=== PATIENT | female | born 1935 | race Caucasian/White ===

== ENCOUNTER 2017-11-15 11:02 | Emergency (ER) | payer MEDICARE, OTHER ==
[~2017-11-15] VITALS: Ht 165.1 cm; Wt 79.4 kg
[2017-11-15] MEDS ORDERED: cloNIDine HCL 0.1 MG TAB ONE (11:13)
[2017-11-15] MEDS ORDERED: cloNIDine HCL 0.1 MG TAB PO ONE (11:30)
[2017-11-15 12:00] VITALS: BP 172/84
[2017-11-15] MEDS ORDERED: TETANUS-DIPTH-ACEL PERTUSSIS 0.5ML SYRG IM ONE ×2 (12:18→12:30)
== END 2017-11-15 12:42 | disposition home or self-care (01) ==
LOC: ER 11:02
DX: S01.81XA Laceration without foreign body of other part of head, initial encounter (principal); M25.531 Pain in right wrist; I16.0 Hypertensive urgency; I10 Essential (primary) hypertension; J44.9 Chronic obstructive pulmonary disease, unspecified; J45.909 Unspecified asthma, uncomplicated; Z90.710 Acquired absence of both cervix and uterus; Z90.49 Acquired absence of other specified parts of digestive tract; W01.0XXA Fall on same level from slipping, tripping and stumbling without subsequent striking against object, initial encounter; Y93.89 Activity, other specified; Y99.8 Other external cause status; Y92.89 Other specified places as the place of occurrence of the external cause
CPT/HCPCS: 12011; 70450; 73110; 90471; 90715

== ENCOUNTER 2019-10-03 17:04 | Emergency (ER) | payer MEDICARE, OTHER ==
[~2019-10-03] VITALS: Ht 165.1 cm; Wt 79.4 kg
[2019-10-03 17:59] VITALS: BP 175/95
== END 2019-10-03 23:37 | disposition left against medical advice (07) ==
LOC: ER 17:04
DX: R51 Headache (principal); Z53.21 Procedure and treatment not carried out due to patient leaving prior to being seen by health care provider
CPT/HCPCS: 70450

== ENCOUNTER 2020-07-09 11:51 | Inpatient (IN) | payer MEDICARE, OTHER ==
[~2020-07-09] VITALS: Ht 165.1 cm; Wt 73.7 kg
[2020-07-09] MEDS ORDERED: SODIUM CHLORIDE 0.9% 1,000 ML IV ONE (12:15)
[2020-07-09] MEDS ORDERED: ACETAMINOPHEN 500 MG TAB PO ONE (12:46)
[2020-07-09 13:06] LABS: Basophils # (auto) 0 10 ^3/uL (0-0.2); Basophils % (auto) 0.6 % (0.0-2.0); Eosinophils # (auto) 0.1 10 ^3/uL (0-0.8); Eosinophils % (auto) 1.5 % (0.0-7.0); Hematocrit 38.1 % (36.0-46.0); Hemoglobin 13.2 g/dL (12.2-16.2); Lymphocytes % (auto) 13.9 % (10.0-50.0); Mean Corpuscular Hemoglobin 33.2 pg (28.0-32.0); Mean Corpuscular Hgb Conc. 34.6 g/dL (32.0-36.0); Mean Corpuscular Volume 96.1 fL (80.0-100.0); Monocytes # (auto) 0.6 10 ^3/uL (0-1.3); Monocytes % (auto) 7.8 % (0.0-12.0); Neutrophils # (auto) 5.4 10 ^3/uL (1.6-8.6); Neutrophils % (auto) 76.2 % (37.0-80.0); Nucleated Red Blood Cells % 0.1 %; Platelet Count (auto) 160 10^3/uL (140-450); Red Blood Cells 3.97 10^6/uL (4.0-5.20); Red Cell Distribution Width 12.8 % (11.8-14.3); White Blood Cell 7.1 10^3/uL (4.4-10.8)
[2020-07-09 13:14] LABS: Urine Bacteria MANY /hpf (None Seen); Urine Blood Negative /uL (Negative); Urine Mucus FEW (None Seen); Urine Specific Gravity 1.009 (1.001-1.035); Urine WBC 23 /hpf (0 - 5)
[2020-07-09 13:25] LABS: Albumin 2.8 g/dL (3.4-5.0); Anion Gap 5 (5-15); Blood Urea Nitrogen 13 mg/dL (7-18); Calcium 8.1 mg/dL (8.5-10.1); Carbon Dioxide 33 mmol/L (21-32); Chloride 103 mmol/L (98-107); Glucose 108 mg/dL (74-106); Sodium 141 mmol/L (136-145)
[2020-07-09 13:32] LABS: Alanine Aminotransferase 16 U/L (13-56); Alkaline Phosphatase 99 U/L (45-117); Aspartate Aminotransferase 14 U/L (15-37); BUN/Creatinine Ratio 13.3; Bilirubin, Total 0.8 mg/dL (0.2-1.0); GFR African American 69 mL/min; GFR Non-African American 57 mL/min; Total Protein 6.6 g/dL (6.4-8.2)
[2020-07-09 13:38] LABS: Potassium 2.7 mmol/L (3.5-5.1)
[2020-07-09] MEDS ORDERED: POTASSIUM EFFERVESENT TAB 25 MEQ PO ONE (14:15)
[2020-07-09] MEDS ORDERED: cefTRIAXone 1GM/50ML D5W 50 ML IV ONE (15:00)
[2020-07-09] MEDS ORDERED: POTASSIUM CHL 20MEQ/100ML 100 ML IV ONE (18:15)
[2020-07-09] MEDS ORDERED: MORPHINE SULF INJ 2 MG/ML SYRINGE 1ML IV PRN (18:15)
[2020-07-09] MEDS ORDERED: DOCUSATE CALCIUM 240 MG CAP PO PRN (18:15)
[2020-07-09] MEDS ORDERED: NITROGLYCERIN 0.4 MG SL TAB SL PRN (18:15)
[2020-07-09] MEDS ORDERED: LORazepam 0.5 MG TAB PO PRN (18:15)
[2020-07-09] MEDS: ACETAMINOPHEN 500 MG TAB PO PRN (19:51)
--- NOTE | 2020-07-09 20:20 | NUR ---
Telemetry admit from ER to [facility]- Unit JAVIER RAMSAY admitted to Telemetry unit. Patient oriented to KEON RESENDIZ, primary RN, unit, room, bed, and unit policies regarding patient care and visiting hours. Patient now on continuous telemetry monitoring, tele box # 1 and telemetry reading on arrival to unit is sinus rhythm. Patient is alert and oriented x4. Patient denies pain or shortness of breath at this time. No sign/symptoms of distress noted at this time. Instructed on plan of care and encouraged patient to call for assistance as needed, patient verbalized understanding. Bed is locked in lowest position, side rails x 2 are up, call light is within reach, and bed alarm is on.
[2020-07-09 20:22] VITALS: BP 155/77
[2020-07-09] MEDS: SODIUM CHLORIDE 0.9% 1,000 ML IV SCH (21:00)
[2020-07-09 21:37] VITALS: BP 155/77
[2020-07-09] MEDS ORDERED: ALBUTEROL SULF HFA 90MCG INH 200DOSE IN SCH (22:00)
[2020-07-09] MEDS ORDERED: MULT-1018 PO (23:08)
[2020-07-09] MEDS ORDERED: CHOL400C15 PO (23:08)
[2020-07-09] MEDS ORDERED: FURO1TAB31 PO (23:08)
[2020-07-09] MEDS ORDERED: LOSA-39 PO (23:08)
[2020-07-09] MEDS ORDERED: VERA240C2 PO (23:08)
[2020-07-09] MEDS ORDERED: ATOR20TA PO (23:08)
[2020-07-09] MEDS ORDERED: FLUT250M2 INH (23:14)
[2020-07-09] MEDS ORDERED: CITA-73 PO (23:14)
[2020-07-09] MEDS ORDERED: LEVA1NEB5 NEB (23:14)
[2020-07-09] MEDS ORDERED: FLUT50SP (23:14)
[2020-07-09] MEDS ORDERED: CLON-499 PO (23:14)
[2020-07-09] MEDS ORDERED: ALBU108A14 IN (23:14)
[2020-07-09] MEDS ORDERED: FAMO-12 PO (23:14)
[2020-07-10] VITALS (17 sets, daily range): BP systolic 104–193; BP diastolic 64–113
--- NOTE | 2020-07-10 06:15 | NUR ---
Spoke with Hospitalist RE: Positive Blood Cultures Notified BARRINGTNO Nicole that patients blood cultures came back positive for anaerobic gram negative rods. BARRINGTON Nicole made aware that patient has Rocephin 1gm IV daily ordered. New order received and verified. Order read back and verified (see eMAR). Will carry out order as received.
[2020-07-10] MEDS: SODIUM CHLORIDE 0.9% 1,000 ML IV SCH (07:00)
[2020-07-10 08:06] LABS: Basophils # (auto) 0 10 ^3/uL (0-0.2); Basophils % (auto) 0.3 % (0.0-2.0); Eosinophils # (auto) 0 10 ^3/uL (0-0.8); Hemoglobin 13.2 g/dL (12.2-16.2); Lymphocytes # (auto) 0.5 10 ^3/uL (0.4-5.4); Lymphocytes % (auto) 5.6 % (10.0-50.0); Mean Corpuscular Hemoglobin 33.2 pg (28.0-32.0); Mean Corpuscular Hgb Conc. 34.7 g/dL (32.0-36.0); Mean Corpuscular Volume 95.6 fL (80.0-100.0); Monocytes # (auto) 0.4 10 ^3/uL (0-1.3); Monocytes % (auto) 4.6 % (0.0-12.0); Neutrophils # (auto) 7.4 10 ^3/uL (1.6-8.6); Neutrophils % (auto) 89.5 % (37.0-80.0); Nucleated Red Blood Cells % 0.1 %; Platelet Count (auto) 145 10^3/uL (140-450); Red Blood Cells 3.98 10^6/uL (4.0-5.20); Red Cell Distribution Width 12.8 % (11.8-14.3); White Blood Cell 8.3 10^3/uL (4.4-10.8)
[2020-07-10 08:22] LABS: Albumin 2.5 g/dL (3.4-5.0); Calcium 8.2 mg/dL (8.5-10.1); Magnesium 2.4 mg/dL (1.6-2.6)
[2020-07-10 08:25] LABS: BUN/Creatinine Ratio 16.7; Bilirubin, Total 0.8 mg/dL (0.2-1.0); Total Protein 6.1 g/dL (6.4-8.2)
[2020-07-10 08:28] LABS: Potassium 2.9 mmol/L (3.5-5.1)
--- NOTE | 2020-07-10 08:29 | NUR ---
PAGED BEH[employer]IOR[employer] SCIENCES DEPARTMENT CHAIR HOSPITALIST WITH CRITICAL POTASSIUM. AWAITING CALL BACK.
--- NOTE | 2020-07-10 08:33 | NUR ---
SPOKE WITH Clementina GARCIA. RECEIVED NEW ORDERS. BRIANNA. WILL FOLLOW THROUGH.
[2020-07-10] MEDS ORDERED: POTASSIUM EFFERVESENT TAB 25 MEQ PO ONE (08:45)
[2020-07-10] MEDS ORDERED: cefTRIAXone 1GM/50ML D5W 50 ML IV SCH (09:00)
[2020-07-10] MEDS ORDERED: PANTOPRAZOLE 40 MG TAB PO SCH (10:00)
[2020-07-10] MEDS ORDERED: ENOXAPARIN SOD 40 MG/0.4 ML SYRINGE SC SCH (10:00)
[2020-07-10] MEDS: BUDESONIDE (INHALATION) 180 MCG IH IN SCH (10:00)
--- NOTE | 2020-07-10 10:20 | NUR ---
Respiratory note: DPI PULMICORT 360MCG HELD PENDING COVID-19 RESULTS. PT IS RESTING COMFORTABLY. NO RESPIRATORY DISTRESS NOTED. SPO2 95% ON 3L NC, HR 82, RR 18, BS CLEAR/DIMINISHED BILATERALLY. NO FURTHER RESPIRATORY INTERVENTIONS INDICATED AT THIS TIME. WILL CONTINUE TO MONITOR PT. CHARTING COMPLETE FROM OUTSIDE OF PT ROOM PER COVID-19 PRECAUTIONS/PROTOCOL.
--- NOTE | 2020-07-10 10:20 | NUR ---
Respiratory note: PT IS RESTING COMFORTABLY. NO RESPIRATORY DISTRESS NOTED. SOP2 95% ON 3L NC, HR 82, RR 18, BS CLEAR/DIMINISHED BILAT Addendum: 07/10/20 at 1059 by DEWAYNE POOLE, RT RT BS CLEAR/DIMINISHED BILATERALLY. NO FURTHER RESPIRATORY INTERVENTIONS INDICATED AT THIS TIME. WILL CONTINUE TO MONITOR PT. CHARTING COMPLETE FROM OUTSIDE OF PT ROOM PER COVID-19 PRECAUTIONS/PROTOCOL.
[2020-07-10] MEDS: ZINC SULFATE 220mg CAP or TAB PO SCH (10:45)
[2020-07-10] MEDS: ASCORBIC ACID 1,000 MG TAB PO SCH (10:46)
[2020-07-10] MEDS: CHOLECALCIFEROL (VITD3) 2,000 UNIT CAP PO SCH (10:46)
[2020-07-10] MEDS ORDERED: POTASSIUM CHLORIDE 60 MEQ, LIDOCAINE 1% (LOCAL ANESTH.) 6 ML in SODIUM CHL 0.9% 500 ML IV ONE (12:30)
[2020-07-10] MEDS ORDERED: PIPERACILLIN-TAZOB 3.375GM 100 ML IV SCH (14:00)
--- NOTE | 2020-07-10 15:06 | NUR ---
PATIENT TRANSFERRED TO ROOM 272A WITH TELEMETRY MONITORING IN PLACE. CALLED TELE OFFICE TO INFORM OF PATIENT TRANSFER. PATIENT ON 3L NC. NO S/S OF DISTRESS NOTED. REPORT GIVEN TO KAMRYN URRUTIA. PATIENT TRANSPORTED VIA WHEELCHAIR.
--- NOTE | 2020-07-10 15:10 | NUR ---
TRANSFER PATIENT TRANSFERRED TO ROOM 272A AFTER REPORT RECEIVED FROM KAMRYN CAIN. TEL BOX #1 RETURNED. NEW TELE BOX #75 RECEIVED
--- NOTE | 2020-07-10 19:12 | NUR ---
Opening Shift Note Assumed care of patient after receiving report from KAMRYN Schofield. Patient is awake and alert with no S/S of distress/SOB or pain. Call light within reach, bed in lowest locked position x2 side rails. Instructed on POC and to call for assist PRN, will continue to monitor for changes Q1hr and PRN.
--- NOTE | 2020-07-10 20:00 | NUR ---
Patient c/o nausea, patient vomiting into green emesis bag. Paged hospitalist at this time for medication for nausea and vomiting and regarding HR in 150's. Patient previously SR in 70-90. Patient now sustaining 140-160s.
--- NOTE | 2020-07-10 20:06 | NUR ---
Called telemetry monitors to review patient heart rate, if there were any other incidents of elevated HR or rhythm change. Patients HR ranging from 150-166.
--- NOTE | 2020-07-10 20:07 | NUR ---
Went in patients room, patient sitting up in bed. Patient had taken off oxygen, oxygen NC replaced. Patient pale and diaphoretic. Patient HR ranging from 130-160. When questioning patient, patient able to respond though short of breath. Respirations labored at 22. Patient hands cold, unable to obtain O2 sat reading. Oxygen increased to 4 L.
--- NOTE | 2020-07-10 20:12 | NUR ---
Paged respiratory, wanting an evaluation on patient. Patients lungs sounds presenting with wheezing and crackles. Resource RN Ilda asking patient if still feeling nauseas, patient stated yes. Patient presenting with facial grimacing. Patient asked if she is experiencing chest pain, HR 155, patient stated yes. EKG performed reading Sinus Tachycardia. Patient respirations labored, patient no longer responding to questions. Patient's lips becoming blue, code assist called. 20:24 vitals temp 99.3, BP 136/106, HR 152, O2 35-37%, BS 203. Code team arrived. Charge nurse Ortiz Bourne, ICU charge, RT team arrived. See code notes.
[2020-07-10] MEDS ORDERED: methylPREDNISolone SOD SUCC 125 MG/2 ML VL ONE (20:29)
[2020-07-10] MEDS ORDERED: ALBUTEROL SULF 2.5 MG/0.5ML(0.5%) NEB SOLN ONE (20:29)
[2020-07-10] MEDS: PROPOFOL 100 ML IV SCH (20:30)
[2020-07-10] MEDS: MIDAZOLAM DRIP 50 mg/50mL 50 ML IV SCH (20:30)
--- NOTE | 2020-07-10 20:30 | NUR ---
CODE ASSIST PATIENT PRESENTED TO THE HOSPITAL FOR URINARY SYMPTOMS AND WAS ADMITTED TO R/O UROSEPSIS AND COVID, PATIENT WAS NEGATIVE FOR COVID ON 07-09-2020. PRIMARY RN ENTERED THE ROOM TO FIND THE PATIENT IN RESPIRATORY DISTRESS WITH DECREASED LOC. PATIENT HAS EYES OPEN BUT DOES NOT FOLLOW DIRECTION OR RESPOND. PATIENT UPON ASSESSMENT WAS FOUND TO BE HYPOXIC AT 35% ON 2 LTRS NC SHE WAS PLACED ON A NON-REBREATHER AND THAN MANUAL BAGGING WITH BVM WITH NO IMPROVEMENT. PER PRIMARY RN PATIENT HAD AN EPISODE OF VOMITING SHORTLY PRIOR TO CHANGE IN STATUS. DURING STABILIZATION PATIENT HAD MULTIPLE EPISODES OF V-TACH WHICH SHE WAS SHOCKED ONE TIME FOR AT 120 J. INTUBATION WAS REQUIRED AND PATIENT WAS TRANSPORTED TO ICU. PATIENT MOTTLED FROM THE BREAST LINE UP, PUPILS EQUAL 3/3 REACTIVE, 20G IV ACCESS LEFT WRIST/FOREARM AREA RUNNING SALINE AND POTASSIUM, PATIENT IN OBVIOUS RESPIRATORY DISTRESS WITH ACCESSORY MUSCLE USE AND GRUNTING. RAPID SHALLOW BREATHING WITH MINIMAL CHEST MOVEMENT, PATIENT IS WHEEZING THROUGHOUT. 2033 SOLUMEDROL 125MG IV GIVEN X1 DOSE 2033 ZOFRAN 4MG IV X1 DOSE 2035 SUCC 100MG GIVEN IVP X1 DOSE 2035 ETOMIDATE 20MG IVP GIVEN X1 DOSE 2036 INTUBATION 8.0 24CM TEETH GOOD COLOR CHANGE, EQUAL CHEST RISE, LUNG SOUNDS AUSCULTATED IN ALL LUNG MALCOLM CODE ASSIST GLUCOSE 203 INITIAL VITALS 136/106, 152 HR, 99.3 TEMP, RR 40 POST VITALS 166/96, 152 HR, ASSISTED RESPIRATIONS, 91% SPO2
--- NOTE | 2020-07-10 20:30 | NUR ---
Code Assist note. Patient determined to be at high risk for Code Blue due to cardiac/respiratory status. Code assist called. Hospitalist BARRINGTON Nicole notified.
[2020-07-10] MEDS ORDERED: ONDANSETRON HCL 4 MG/2 ML VIAL ONE (20:31)
[2020-07-10] MEDS ORDERED: SUCCINYLCHOLINE CHLORIDE 20 MG/ML 10ML VIAL IV ONE ×3 (20:33→21:45)
[2020-07-10] MEDS ORDERED: ETOMIDATE (2MG/ML) 20ML VIAL IV ONE ×3 (20:33→21:45)
--- NOTE | 2020-07-10 20:42 | NUR ---
Patient transferred to ICU unit. Family notified. Will give report to Deedee CRUSHER FEEDER.
--- NOTE | 2020-07-10 20:42 | NUR ---
Family updated on pt status Family of JAVIER RAMSAY updated on patient's status and condition. All questions and concerns addressed. Daughter Shaista verbalized understanding.
[2020-07-10] MEDS ORDERED: PROPOFOL 100 ML IV ONE (20:46)
[2020-07-10] MEDS ORDERED: MIDAZOLAM DRIP 50 mg/50mL 50 ML IV ONE (20:47)
--- NOTE | 2020-07-10 20:50 | NUR ---
Transfer from Med/Surg/Tele: Patient brought to ICU via bed intubated/sedated. ET size 8.0/24 @ lip. Settings AC rate 14, vT 500, FiO2 100%, PEEP 8. Neuro: pupils bilateral 3 mm/brisk; moves extremities with light pain; + cough/gag. Cardio: NSR 80s; SBPs 130s-150s; no edema noted; pulses all palpable. Resp: Anterior clear/diminished; ET no secretions; Oral large thin clear secretions. GI: Left nare NGT inserted: placement checked with auscultation/aspiration; BS present; Last bm per report 07/10/20 incontinent. : murry inserted on transfer for strict I/O: light anne/clear. Skin: generalized bruising, no open wounds. IVs: left AC 20 g and right hand 20 g IV IID both inserted on transfer; left forearm 20 g inserted on 07/10/20. Drips: propofol @ 20 and Versed @ 4. Will continue to round/reposition/perform oral care.
[2020-07-10] MEDS: fentaNYL Drip 2500mCg/250mlNS 250 ML IV SCH (21:45)
[2020-07-10] MEDS ORDERED: ONDANSETRON HCL 4 MG/2 ML VIAL IV ONE (21:45)
[2020-07-10] MEDS: ACETAMINOPHEN 500 MG TAB PO PRN (22:00)
[2020-07-10 22:41] LABS: Basophils # (auto) 0 10 ^3/uL (0-0.2); Eosinophils # (auto) 0 10 ^3/uL (0-0.8); Hematocrit 41.3 % (36.0-46.0); Hemoglobin 13.9 g/dL (12.2-16.2); Lymphocytes # (auto) 0.3 10 ^3/uL (0.4-5.4); Mean Corpuscular Hemoglobin 32.4 pg (28.0-32.0); Mean Corpuscular Hgb Conc. 33.7 g/dL (32.0-36.0); Mean Corpuscular Volume 96.1 fL (80.0-100.0); Monocytes # (auto) 0.4 10 ^3/uL (0-1.3); Monocytes % (auto) 2.9 % (0.0-12.0); Neutrophils # (auto) 13.8 10 ^3/uL (1.6-8.6); Neutrophils % (auto) 95.1 % (37.0-80.0); Platelet Count (auto) 159 10^3/uL (140-450); White Blood Cell 14.5 10^3/uL (4.4-10.8)
[2020-07-10 23:04] LABS: Albumin 2.3 g/dL (3.4-5.0); Anion Gap 10 (5-15); Aspartate Aminotransferase 47 U/L (15-37); BUN/Creatinine Ratio 13.2; Blood Urea Nitrogen 12 mg/dL (7-18); Calcium 8.3 mg/dL (8.5-10.1); Carbon Dioxide 26 mmol/L (21-32); Chloride 106 mmol/L (98-107); GFR African American 76 mL/min; GFR Non-African American 62 mL/min; Glucose 221 mg/dL (74-106); Sodium 142 mmol/L (136-145)
[2020-07-10 23:12] LABS: Alanine Aminotransferase 24 U/L (13-56); Alkaline Phosphatase 89 U/L (45-117); Bilirubin, Total 0.9 mg/dL (0.2-1.0); Total Protein 6.1 g/dL (6.4-8.2)
[2020-07-10] MEDS ORDERED: PIPERACILLIN-TAZOB 3.375GM 100 ML IV ONE (23:45)
[2020-07-10] MEDS ORDERED: MEROPENEM 500MG IVPB 50 ML IV ONE ×5 (23:45)
[2020-07-10] MEDS ORDERED: VANCOMYCIN PER PHARMACY 0 MG IV SCH ×5 (23:45)
[2020-07-10] MEDS ORDERED: ENOXAPARIN SOD 100 MG/1 ML SYRINGE SC ONE (23:45)
[2020-07-11] VITALS (97 sets, daily range): BP systolic 98–188; BP diastolic 52–110
[2020-07-11] MEDS ORDERED: THIAMINE 100mg/ml INJ (200mg/2ml VIAL) IV ONE
[2020-07-11] MEDS ORDERED: MEROPENEM 500MG IVPB 50 ML IV ONE
[2020-07-11] MEDS ORDERED: FUROSEMIDE 100 MG/10ML VIAL IV ONE
[2020-07-11] MEDS ORDERED: VANCOMYCIN PER PHARMACY 0 MG IV SCH
[2020-07-11] MEDS ORDERED: VANCOMYCIN 1GM/250ML 250 ML IV ONE (01:00)
[2020-07-11 01:30] LABS: Cholesterol 157 mg/dL (< 200)
[2020-07-11 01:33] LABS: HDL Cholesterol 37 mg/dL (40-59); LDL Cholesterol 102 mg/dL (< 100); Triglycerides 145 mg/dL (< 150)
[2020-07-11] MEDS: IPRATROPIUM BROM 0.5 MG/2.5ML INH SOL NEB SCH ×6 (02:00→22:35)
[2020-07-11 04:21] LABS: Hematocrit 40.9 % (36.0-46.0); Hemoglobin 13.9 g/dL (12.2-16.2); Mean Corpuscular Hgb Conc. 34.1 g/dL (32.0-36.0); Mean Corpuscular Volume 96.6 fL (80.0-100.0); Platelet Count (auto) 161 10^3/uL (140-450); Red Blood Cells 4.23 10^6/uL (4.0-5.20); Red Cell Distribution Width 12.8 % (11.8-14.3); White Blood Cell 10.4 10^3/uL (4.4-10.8)
[2020-07-11] MEDS: PROPOFOL 100 ML IV SCH ×3 (04:30→18:32)
[2020-07-11 04:31] LABS: Basophils % (manual) 0 (0.0-2.0); Blast Cells 0; Eosinophils % (manual) 0 (0-7); Metamyelocytes % 0; Monocytes % (manual) 0 (0-12); Myelocytes % 0; Promyelocytes % 0; Reactive Lymphocytes 0
[2020-07-11 04:42] LABS: Potassium 3.3 mmol/L (3.5-5.1)
[2020-07-11 04:46] LABS: INR 1.16 (0.9-1.15); Partial Thromboplastin Time 25.9 sec (23.0-31.2)
[2020-07-11] MEDS: D5W/SOD CHL 0.45%/KCL 20MEQ 1,000 ML IV SCH ×2 (04:51→20:00)
[2020-07-11 04:52] LABS: Albumin 2.4 g/dL (3.4-5.0); Bilirubin, Total 0.7 mg/dL (0.2-1.0); Calcium 8.2 mg/dL (8.5-10.1); Magnesium 2.4 mg/dL (1.6-2.6); Phosphorus 2.1 mg/dL (2.5-4.90)
[2020-07-11 05:07] LABS: Band Neutrophils % (manual) 3; Lymphocytes % (manual) 1 (10.0-50.0)
[2020-07-11] MEDS: methylPREDNISolone SOD SUCC 40 MG/ML VL IV SCH ×3 (05:25→22:15)
[2020-07-11] MEDS: FUROSEMIDE 40 MG/4 ML VIAL IV SCH ×2 (05:25→18:33)
[2020-07-11] MEDS: LABETALOL HCL 5 MG/ML 4ML SYRINGE IV PRN ×2 (05:27→18:33)
[2020-07-11] MEDS ORDERED: PIPERACILLIN-TAZOB 3.375GM 100 ML IV SCH (06:00)
--- NOTE | 2020-07-11 06:15 | NUR ---
Low potassium of 3.3. yard caller hospitalist paged and received new order for 40 meq K rider x1
[2020-07-11] MEDS ORDERED: POTASSIUM CHL 20MEQ/100ML 200 ML IV ONE (06:25)
[2020-07-11] MEDS: POTASSIUM CHL 20MEQ/100ML 100 ML IV SCH ×2 (06:30→09:30)
[2020-07-11] MEDS: CHOLECALCIFEROL (VITD3) 2,000 UNIT CAP PO SCH (09:58)
[2020-07-11] MEDS: ASCORBIC ACID 1,000 MG TAB PO SCH (09:58)
[2020-07-11] MEDS: MEROPENEM 1GM IVPB 100 ML IV SCH ×2 (09:58→21:36)
[2020-07-11] MEDS: FAMOTIDINE (10MG/ML) 2ML VL IV SCH ×2 (09:59→22:16)
[2020-07-11] MEDS: THIAMINE 100mg/ml INJ (200mg/2ml VIAL) IV SCH (09:59)
[2020-07-11] MEDS: ZINC SULFATE 220mg CAP or TAB PO SCH (10:00)
[2020-07-11] MEDS ORDERED: MEROPENEM 500MG IVPB 50 ML IV SCH ×5 (10:00)
[2020-07-11] MEDS ORDERED: EPINEPHrine HCL 1 MG/10 ML SYRG IV ONE (10:53)
[2020-07-11] MEDS ORDERED: NALOXONE HCL 1MG/ML 2ML SYRINGE IV ONE (10:53)
[2020-07-11] MEDS: ENOXAPARIN SOD 80 MG/0.8ML SYRINGE SC SCH ×2 (11:43→23:20)
[2020-07-11] MEDS ORDERED: IOHEXOL 350 MG/ML 100ML IJ ONE (14:12)
--- NOTE | 2020-07-11 16:50 | NUR ---
RT Transport Note: Patient transported to CT with KAMRYN ESTRADA CHARGE . Patient transported to and from procedure on ventilator with previous ordered settings. Patient on cardiac rn with alarms set and audible, ambu-bag/mask connected to 02 tank. Patient returned to room with no adverse reaction noted. Transport completed without incident.
--- NOTE | 2020-07-11 17:45 | NUR ---
Received report from SANDRITA QUIROGA pt. has PE noted on CTA, Dr. Cuellar notified, no new orders received, will cont.to monitor for any changes, assessment ongoing.
[2020-07-11] MEDS: VANCOMYCIN 750mg/250ml 250 ML IV SCH (18:27)
[2020-07-11] MEDS ORDERED: POTASSIUM CHL 20MEQ/100ML 100 ML IV ONE (18:45)
[2020-07-11] MEDS: ALBUTEROL SULF 2.5 MG/0.5ML(0.5%) NEB SOLN NEB PRN ×2 (18:53→22:36)
--- NOTE | 2020-07-11 19:00 | NUR ---
Shift opening note: Primary RN received report on patient. Pt intubated ETT 8.0/ 24CM@LL, VENT settings: AC 14/ TV 500/ FIO2, 30/ PEEP 8/ O2 SAT 94%. bilateral lung sounds diminished. NGT in left nare clamped, placement checked. Landis catheter draining via gravity with yellow urine. Temp probe in place. Safety precautions in place. Will continue to monitor.
--- NOTE | 2020-07-11 19:15 | NUR ---
No distress noted, pt. report given to KAMRYN Alvarez. Care of pt. assumed per NOC RN. Day shift RN relinquished care and signed off.
--- NOTE | 2020-07-11 21:00 | NUR ---
Sedation vacation held: Sedation vacation held at this time d/t patient too unstable.
--- NOTE | 2020-07-11 21:13 | NUR ---
Warming measures: Patient noted to have a temp of 96.4. Temp probe assessed and noted to be working appropriately. Warming lights and warm blankets placed on patient. RN will continue to monitor and assess patient.
[2020-07-11] MEDS: fentaNYL Drip 2500mCg/250mlNS 250 ML IV SCH (21:29)
[2020-07-11] MEDS: MIDAZOLAM DRIP 50 mg/50mL 50 ML IV SCH (21:35)
--- NOTE | 2020-07-11 23:23 | NUR ---
Temp: Patient now noted with a temp of 97.7. Warming measures noted to be effective. RN will continue to monitor and assess patient.
[2020-07-12] VITALS (98 sets, daily range): BP systolic 72–202; BP diastolic 39–136
[2020-07-12] MEDS: IPRATROPIUM BROM 0.5 MG/2.5ML INH SOL NEB SCH ×6 (02:29→21:53)
[2020-07-12] MEDS: ALBUTEROL SULF 2.5 MG/0.5ML(0.5%) NEB SOLN NEB PRN ×6 (02:29→21:53)
[2020-07-12 04:40] LABS: Basophils # (auto) 0 10 ^3/uL (0-0.2); Eosinophils # (auto) 0 10 ^3/uL (0-0.8); Hematocrit 40.1 % (36.0-46.0); Hemoglobin 13.4 g/dL (12.2-16.2); Lymphocytes # (auto) 0.3 10 ^3/uL (0.4-5.4); Lymphocytes % (auto) 2.4 % (10.0-50.0); Mean Corpuscular Hemoglobin 32.2 pg (28.0-32.0); Mean Corpuscular Hgb Conc. 33.4 g/dL (32.0-36.0); Mean Corpuscular Volume 96.3 fL (80.0-100.0); Monocytes # (auto) 0.4 10 ^3/uL (0-1.3); Neutrophils # (auto) 12.1 10 ^3/uL (1.6-8.6); Neutrophils % (auto) 94.6 % (37.0-80.0); Nucleated Red Blood Cells % 0.9 %; Platelet Count (auto) 177 10^3/uL (140-450); Red Blood Cells 4.16 10^6/uL (4.0-5.20); Red Cell Distribution Width 13.1 % (11.8-14.3); White Blood Cell 12.8 10^3/uL (4.4-10.8)
[2020-07-12 04:59] LABS: BUN/Creatinine Ratio 22.7; Calcium 8.4 mg/dL (8.5-10.1); Potassium 3.3 mmol/L (3.5-5.1)
[2020-07-12] MEDS: methylPREDNISolone SOD SUCC 40 MG/ML VL IV SCH (05:04)
[2020-07-12] MEDS: FUROSEMIDE 40 MG/4 ML VIAL IV SCH ×2 (05:04→17:54)
[2020-07-12] MEDS: LABETALOL HCL 5 MG/ML 4ML SYRINGE IV PRN ×3 (05:46→14:23)
--- NOTE | 2020-07-12 07:15 | NUR ---
Assumed care of pt, report received per KAMRYN Alvarez. Noted intubated and vented, reading sinus rhythm /s ectopy, no distress noted, will cont.to monitor for any changes, assessment ongoing.
[2020-07-12] MEDS: VANCOMYCIN 750mg/250ml 250 ML IV SCH (08:43)
[2020-07-12] MEDS ORDERED: POTASSIUM EFFERVESENT TAB 25 MEQ PO SCH (10:00)
[2020-07-12] MEDS: FAMOTIDINE (10MG/ML) 2ML VL IV SCH ×2 (10:03→22:08)
[2020-07-12] MEDS: MEROPENEM 1GM IVPB 100 ML IV SCH (10:03)
[2020-07-12] MEDS: ZINC SULFATE 220mg CAP or TAB PO SCH (10:04)
[2020-07-12] MEDS: ASCORBIC ACID 1,000 MG TAB PO SCH (10:04)
[2020-07-12] MEDS: CHOLECALCIFEROL (VITD3) 2,000 UNIT CAP PO SCH (10:04)
[2020-07-12] MEDS: THIAMINE 100mg/ml INJ (200mg/2ml VIAL) IV SCH (10:04)
[2020-07-12] MEDS ORDERED: OPTISON 3ml Vial for INJ IV ONE ×2 (10:30→10:32)
[2020-07-12] MEDS ORDERED: InsuLIN REG 1unit/0.01ml Soln (100units/ml) ONE (11:32)
[2020-07-12] MEDS ORDERED: POTASSIUM CHLORIDE 40 MEQ, LIDOCAINE 1% (LOCAL ANESTH.) 4 ML in SODIUM CHL 0.9% 100 ML IV ONE (11:45)
[2020-07-12] MEDS: ENOXAPARIN SOD 80 MG/0.8ML SYRINGE SC SCH ×2 (12:16→23:58)
--- NOTE | 2020-07-12 14:21 | NUR ---
Nutrition Assessment Notes Please refer to link for full assessment notes. Est Energy needs: 6390-4775 kcals (17-20 kcal/kgBW) Est Protein needs: 88-97 gms/day (1.0-1.1 gm/kgBW) Will continue to monitor and reassess prn. Addendum: 07/12/20 at [address] Amended: Links added.
--- NOTE | 2020-07-12 15:15 | NUR ---
Dr. Perkins notified of pt HTN status, new orders received, will cont.to monitor for effectiveness of interventions, will cont.to monitor for any changes, aware of pt family wish for pt. to remain a FUL CODE, aware, assessment ongoing.
--- NOTE | 2020-07-12 15:20 | NUR ---
Respiratory note: CPAP TRIAL INITIATED. PT IS AWAKE AND ANXIOUS NOT FOLLOWING COMMANDS. ABG TO FOLLOW IN 1 HOUR. HR 102, RR 18, SPO2 94%, BP 184/108.
[2020-07-12] MEDS ORDERED: LABETALOL HCL 5 MG/ML 4ML SYRINGE IV ONE (15:30)
[2020-07-12] MEDS: cloNIDine HCL 0.1 MG TAB NG SCH ×2 (15:40→21:58)
--- NOTE | 2020-07-12 16:23 | NUR ---
Respiratory note: TERMINATED CPAP TRIAL. UNABLE TO GET WEANING PARAMETERS AT THIS TIME. PATIENT IS NOT STAYING AWAKE. PER , CPAP TRIAL IN THE AM.
--- NOTE | 2020-07-12 18:30 | NUR ---
KAREN Kenney notified of pt positive blood cultures of E-coli and ESBL in blood, PBX OPERATOR to review chart and possible ABX adjustment coming, will cont.to monitor for any changes, assessment ongoing.
--- NOTE | 2020-07-12 19:00 | NUR ---
No distress noted, pt. report given to KAMRYN Alvarez. Care of pt. assumed per NOC RN. Day shift RN relinquished care and signed off.
--- NOTE | 2020-07-12 21:53 | NUR ---
Shift opening note: Primary RN received report on patient. Pt intubated ETT 8.0/ 24CM@LL, VENT settings: AC 14/ TV 500/ FIO2, 30/ PEEP 8/ O2 SAT 96%. bilateral lung sounds diminished. NGT in left nare clamped, placement checked. Landis catheter draining via gravity with yellow urine. Temp probe in place. Safety precautions in place. Will continue to monitor. Addendum: 07/12/20 at 2155 by ROME PAREDES RN RN Note for 1899.
--- NOTE | 2020-07-12 21:55 | NUR ---
IV insertion IV access to left FA obtained, via clean sterile technique by inserting 22 gauge catheter after first attempt. IV secured properly. No trauma to site. Patient tolerated procedure well.
--- NOTE | 2020-07-12 23:04 | NUR ---
IV infiltration: Patient's IV to right hand infiltrated. IV removed, catheter fully intact. Patient noted to be in no s/s of discomfort or distress.
--- NOTE | 2020-07-12 23:14 | NUR ---
IV insertion IV access to right hand obtained, via clean sterile technique by inserting 22 gauge catheter after first attempt. IV secured properly. No trauma to site. Patient tolerated procedure well.
--- NOTE | 2020-07-12 23:30 | NUR ---
BM: Patient had a BM. Linen change provided. RN and another female RN provided sapphire care. Patient tolerated intervention well with no s/s of discomfort or distress.
[2020-07-13] VITALS (71 sets, daily range): BP systolic 95–167; BP diastolic 37–86
[2020-07-13] MEDS: VANCOMYCIN 750mg/250ml 250 ML IV SCH (00:55)
[2020-07-13] MEDS: ALBUTEROL SULF 2.5 MG/0.5ML(0.5%) NEB SOLN NEB PRN ×5 (02:48→22:04)
[2020-07-13] MEDS: IPRATROPIUM BROM 0.5 MG/2.5ML INH SOL NEB SCH ×6 (02:48→22:04)
[2020-07-13 05:19] LABS: Basophils # (auto) 0 10 ^3/uL (0-0.2); Basophils % (auto) 0.2 % (0.0-2.0); Eosinophils # (auto) 0 10 ^3/uL (0-0.8); Hematocrit 38.3 % (36.0-46.0); Hemoglobin 12.9 g/dL (12.2-16.2); Lymphocytes # (auto) 0.9 10 ^3/uL (0.4-5.4); Lymphocytes % (auto) 9.7 % (10.0-50.0); Mean Corpuscular Hemoglobin 33.3 pg (28.0-32.0); Mean Corpuscular Hgb Conc. 33.6 g/dL (32.0-36.0); Mean Corpuscular Volume 98.9 fL (80.0-100.0); Monocytes # (auto) 0.6 10 ^3/uL (0-1.3); Monocytes % (auto) 5.9 % (0.0-12.0); Neutrophils # (auto) 8.1 10 ^3/uL (1.6-8.6); Neutrophils % (auto) 84.2 % (37.0-80.0); Nucleated Red Blood Cells % 0.2 %; Platelet Count (auto) 168 10^3/uL (140-450); Red Blood Cells 3.87 10^6/uL (4.0-5.20); Red Cell Distribution Width 13.4 % (11.8-14.3); White Blood Cell 9.7 10^3/uL (4.4-10.8)
[2020-07-13] MEDS: FUROSEMIDE 40 MG/4 ML VIAL IV SCH ×2 (06:00→16:53)
--- NOTE | 2020-07-13 07:30 | NUR ---
Opening Shift Note Received pt on mechanical ventilator on precedex at 0.4mcg/kg/hr. Pt able to nod head yes or no to simple questions. Pt very weak when attempt to move extremities. Full assessment done, see interventions. VSS. Right hand 22g infusing precedex site asymptomatic and patent. IV to left wrist; saline locked. Landis catheter to gravity. Will continue to monitor closely.
--- NOTE | 2020-07-13 07:43 | NUR ---
Respiratory note: RECEIVED PATIENT ON V12 V200 VENT ORALLY INTUBATED WITH AN 8.0 ETT SECURED VIA TARA AT THE 23CM MARKING AT THE LIP, AND MECHANICALLY VENTILATED WITH THE CHARTED SETTINGS. SPO2 93%, LUNG SOUNDS CLEAR/DIM T/O. SKIN IS WARM/DRY TO THE TOUCH AND IS INTACT NEAR TARA SITE. THERE IS A NGT PLACED IN THE LEFT NARE AND IT IS SECURED TO THE NOSE. NO BREAKDOWN NOTED AROUND TARA SITE. PITTING EDEMA NOTED IN BILATERAL UPPER AND LOWER EXTREMITIES. PATIENT IS RESPONSIVE TO BOTH VERBAL/TACTILE STIMULI AND IS SEDATED ON A PRECEDEX DRIP. SHE IS RESTING COMFORTABLY AND TOLERATING VENT WELL, NO CHANGES MADE. NO NEW AM CXR TO REPORT. VENT PLUGGED INTO RED OUTLET AND ALL ALARMS ARE SET AND AUDIBLE. WILL CONTINUE TO ASSESS PATIENT WELL VENTILATOR FUNCTION MED-NEB RUN INLINE VIA [employer].
[2020-07-13] MEDS: CHOLECALCIFEROL (VITD3) 2,000 UNIT CAP PO SCH (09:27)
[2020-07-13] MEDS: ZINC SULFATE 220mg CAP or TAB PO SCH (09:27)
[2020-07-13] MEDS: FAMOTIDINE (10MG/ML) 2ML VL IV SCH ×2 (09:27→22:13)
[2020-07-13] MEDS: THIAMINE 100mg/ml INJ (200mg/2ml VIAL) IV SCH (09:28)
[2020-07-13] MEDS: ASCORBIC ACID 1,000 MG TAB PO SCH (09:28)
[2020-07-13] MEDS: cloNIDine HCL 0.1 MG TAB NG SCH ×2 (09:36→22:13)
[2020-07-13] MEDS: ERTAPENEM SOD INJ 1 GM in SODIUM CHL 0.9% 50 ML IV SCH (09:55)
--- NOTE | 2020-07-13 10:00 | NUR ---
Dr. Perkins at bedside, New orders received.
--- NOTE | 2020-07-13 10:03 | NUR ---
Called pt's NOK, Daughter, Shaista, to obtain consent for PICC line insertion. Pt's daughter verbalized consent and verified with charge nurse, Tayla.
--- NOTE | 2020-07-13 10:20 | NUR ---
Respiratory note: PATIENT PLACED ON CPAP MODE FOR WEANING TRIAL. SHE IS TOLERATING WELL AT THIS TIME. KAMRYN JOVEL AT BEDSIDE AND AWARE OF CHANGES AND PATIENTS TOLERANCE. PATIENT WAS REMOVED FROM PRECEDEX DRIP AND REMAINS CALM/RELAXED. WILL CONTINUE TO ASSESS PATIENTS TOLERANCE. VT: 345 RR: 20 SPO2: 94% HR: 75 BP: 108/55
--- NOTE | 2020-07-13 11:44 | NUR ---
Respiratory note: PATIENT EXTUBATED, AT 1135, AFTER SUCCESSFUL WEANING/CPAP TRIAL, AND PER DR. PHIPPS'S TELEPHONE ORDER. SHE WAS PLACED ON 30% COOL AEROSOL MASK AND NO STRIDOR WAS HEARD. PATIENT TOLERATING EXTUBATION WELL; RESPIRATIONS ARE EVEN/UNLABORED. EXTUBATION COMPLETED WITHOUT INCIDENT. KAMRYN JOVEL AT BEDSIDE AND AWARE OF ALL CHANGES.
--- NOTE | 2020-07-13 11:45 | NUR ---
Extubation Pt extubated at this time by RT. Pt tolerating well. No stridor heard. Patient denies pain. Will continue to monitor closely
[2020-07-13] MEDS: ENOXAPARIN SOD 80 MG/0.8ML SYRINGE SC SCH (12:00)
[2020-07-13 12:39] LABS: Albumin 2.4 g/dL (3.4-5.0); Calcium 8.4 mg/dL (8.5-10.1); Potassium 3.1 mmol/L (3.5-5.1)
[2020-07-13 12:44] LABS: BUN/Creatinine Ratio 34.5; Bilirubin, Total 0.3 mg/dL (0.2-1.0); Total Protein 5.8 g/dL (6.4-8.2)
--- NOTE | 2020-07-13 13:42 | NUR ---
Midline Placement: Patient educated on need for midline placement. All risks and benefits explained and all questions and concerns addresses prior to procedure. 18g/10 cm midline inserted via right basilic vein using Ultrasound. Sterile technique utilized. Blood return obtained from the single lumen and flushed easily with NS using proper technique. Midline secured with saline lock; biodisc and occlusive dressing applied. Primary RN Niki notified. Midline lot # [id number]
--- NOTE | 2020-07-13 15:11 | NUR ---
Elimination Pt had small amount of liquid yellow BM. Cleansed pt and partial linen change provided at this time.
--- NOTE | 2020-07-13 15:58 | NUR ---
Pt placed on 2l n.c. by RT. Pt saturations sustaining at 97-99%. No complaints of pain. Pt alert to self; unaware of what happened or where she is. Frequent reorientation needed. MD Perkins paged for downgrade order. stated will assess pt first.
--- NOTE | 2020-07-13 16:05 | NUR ---
MD Freitas at bedside. New orders received
[2020-07-13] MEDS ORDERED: POTASSIUM EFFERVESENT TAB 25 MEQ GT ONE (16:30)
[2020-07-13] MEDS: POTASSIUM CHL 20MEQ/100ML 100 ML IV SCH ×2 (16:54→19:59)
[2020-07-13] MEDS: ACETAMINOPHEN 650 mg PER 20.3 mL UD PO PRN (16:54)
--- NOTE | 2020-07-13 18:10 | NUR ---
Patient became nauseous after potassium through NGT per MD order. Spoke with Dr. Perkins and MD ordered Zofran PRN.
[2020-07-13] MEDS: LABETALOL HCL 5 MG/ML 4ML SYRINGE IV PRN (18:26)
[2020-07-13] MEDS ORDERED: ONDANSETRON HCL 4 MG/2 ML VIAL IV PRN (18:30)
--- NOTE | 2020-07-13 18:42 | NUR ---
HTN PRN labetalol given for b/p 170/101
--- NOTE | 2020-07-13 19:21 | NUR ---
Report given to night shift manager RN to assume care
--- NOTE | 2020-07-13 19:32 | NUR ---
FAMILY UPDATE: PATIENT SPOKE WITH HER DAUGHTER. PATIENT FINANCIAL SERVICES MANAGER SPOKE WITH HER DAUGHTER, INFORMED HER OF TODAY'S EVENTS AND PLAN FOR TELEMETRY STATUS. ALSO ASKED HELEN TO BRING IN BATTERIES FOR HER HEARING AIDS.
--- NOTE | 2020-07-13 20:00 | NUR ---
OPENING NOTE: A&OX3. SLOW TO RECALL BUT APPROPRIATE, CALM AND COOPERATIVE. NSR TO SINUS TACH, HR 80-100s. SBP 140-150s. LABETALOL PRN GIVEN BY PREVIOUS RN. LS CTA, DIMINISHED TO BASES. EVEN AND UNLABORED BREATHING. WEAK NON PRODUCTIVE COUGH. SpO2>95% ON 2L NC. ABD SOFT. HYPOACTIVE BS. MULTIPLE LOOSE BM PER DAY SHIFT. NGT TO LEFT NARE, CLAMPED, + AIR BOLUS. ANNE PATENT AND INTACT, CLEAR YELLOW URINE. SKIN GROSSLY INTACT, SEE SKIN AND WOUND FLOWSHEET. ZULETA BUT WEAK. GENERALIZED EDEMA, LEFT ARM > RIGHT ARM. ALL PULSES PALPABLE. REPORTS DISCOMFORT TO RIGHT ARM FROM FINGERS TO SHOULDER. RIGHT UPPER ARM MIDLINE WITH KCL RUNNING IVPB, CHANGED TO Y PORT WITH NS RUNNING. LEFT WRIST AND RIGHT HAND 22 G PIV, CDI, AND PATENT WITH BLOOD RETURN. DENIES CHEST PAIN, SHORTNESS OF BREATH, NAUSEA/VOMITING, AND NUMBNESS AND TINGLING. REINFORCED POC. MAINTAINED PATIENT SAFETY: BED LOCKED AND IN THE LOWEST POSITION, FREQUENT VISUAL CHECKS, CALL LIGHT WITHIN REACH.
--- NOTE | 2020-07-13 20:23 | NUR ---
REPORT CALLED TO KAMRYN DWYER
--- NOTE | 2020-07-13 20:26 | NUR ---
FAMILY UPDATE: SPOKE WITH PATIENT'S DAUGHTER, HELEN. UPDATED ON NEW ROOM ASSIGNMENT. PATIENT'S DAUGHTER TO BRING IN HEARING AID BATTERIES TOMORROW.
--- NOTE | 2020-07-13 20:58 | NUR ---
LEFT UNIT WITH KAMRYN PETER AND US TERRY Addendum: 07/13/20 at 2111 by Dariana Bolanos RN RN SENT WITH ALL BELONGINGS, HEARING AIDS IN, GLASSES ON.
--- NOTE | 2020-07-13 21:00 | NUR ---
PATIENT ARRIVED ON FLOOR FROM ICU Pt awake and oriented, drowsy, slow speech but easily arousable and able to answer questions appropriately. Pt hard of hearing. BP recorded as 167/ 86, due to medicate with scheduled BP med. Pt on 2L NC saturating at 92%. No S/S of distress, SOB or pain at this time. Safety measures in place, bed in lowest locked position, bed rails raised x2, call light within reach. Landis placed in low position, draining clear yellow urine to gravity. NG tube noted in left nare @ 67. All needs addressed at this time. Will continue to monitor q1h and PRN.
--- NOTE | 2020-07-14 00:30 | NUR ---
During rounds, patient found with left hand IV removed and blood on linens. Pressure dressing applied to site, catheter intact, patient tolerating. Will continue to monitor.
[2020-07-14] MEDS: ENOXAPARIN SOD 80 MG/0.8ML SYRINGE SC SCH ×3 (00:46→23:46)
[2020-07-14] MEDS: IPRATROPIUM BROM 0.5 MG/2.5ML INH SOL NEB SCH ×6 (02:11→22:33)
[2020-07-14] MEDS: ALBUTEROL SULF 2.5 MG/0.5ML(0.5%) NEB SOLN NEB PRN ×6 (02:11→22:33)
--- NOTE | 2020-07-14 02:56 | NUR ---
Pt called nurses station to report pain in chest. Pt evaluated by this RN. Entered room and found NG tube laying in pt bed no longer inserted. Pt asked what happened to NG tube, pt states "it was bothering the inside of my nose so I pulled it out". Pt made aware of the purpose for NG tube. After assessment, this RN found pt's stated "chest pain" was located in the epigastric region. Pt made aware that this could be due to the self removal of NG. Pt offered prescribed pain medication, pt accepted. Swallow eval ordered. Will continue to monitor.
--- NOTE | 2020-07-14 03:01 | NUR ---
Pt given prescribed pain medication orally. Pt tolerated swallowing well. Will continue to monitor.
[2020-07-14] MEDS: ACETAMINOPHEN 650 mg PER 20.3 mL UD PO PRN (03:08)
[2020-07-14 05:00] VITALS: BP 160/86
[2020-07-14] MEDS: FUROSEMIDE 40 MG/4 ML VIAL IV SCH ×2 (06:01→19:09)
[2020-07-14 06:18] LABS: Basophils # (auto) 0 10 ^3/uL (0-0.2); Basophils % (auto) 0.2 % (0.0-2.0); Eosinophils # (auto) 0 10 ^3/uL (0-0.8); Eosinophils % (auto) 0.3 % (0.0-7.0); Hematocrit 40.4 % (36.0-46.0); Hemoglobin 13.9 g/dL (12.2-16.2); Lymphocytes # (auto) 1.3 10 ^3/uL (0.4-5.4); Lymphocytes % (auto) 17.7 % (10.0-50.0); Mean Corpuscular Hemoglobin 33.3 pg (28.0-32.0); Mean Corpuscular Hgb Conc. 34.4 g/dL (32.0-36.0); Mean Corpuscular Volume 96.9 fL (80.0-100.0); Monocytes # (auto) 0.5 10 ^3/uL (0-1.3); Monocytes % (auto) 6.2 % (0.0-12.0); Neutrophils # (auto) 5.7 10 ^3/uL (1.6-8.6); Neutrophils % (auto) 75.6 % (37.0-80.0); Nucleated Red Blood Cells % 0.1 %; Platelet Count (auto) 167 10^3/uL (140-450); Red Blood Cells 4.17 10^6/uL (4.0-5.20); White Blood Cell 7.6 10^3/uL (4.4-10.8)
[2020-07-14 06:24] LABS: Potassium 3.7 mmol/L (3.5-5.1)
[2020-07-14 06:35] LABS: BUN/Creatinine Ratio 28.8; Calcium 8.5 mg/dL (8.5-10.1); Magnesium 2.7 mg/dL (1.6-2.6)
--- NOTE | 2020-07-14 07:35 | NUR ---
Opening Shift Note Assumed care of patient, awake and alert. No S/S of distress/SOB or pain. Instructed on POC and to call for assist PRN, will continue to monitor for changes Q1hr and PRN.
[2020-07-14 09:00] VITALS: BP 152/88
[2020-07-14 09:56] VITALS: BP 152/88
[2020-07-14] MEDS: ASCORBIC ACID 1,000 MG TAB PO SCH (10:00)
[2020-07-14] MEDS: ZINC SULFATE 220mg CAP or TAB PO SCH (10:00)
[2020-07-14] MEDS: CHOLECALCIFEROL (VITD3) 2,000 UNIT CAP PO SCH (10:00)
[2020-07-14] MEDS: ERTAPENEM SOD INJ 1 GM in SODIUM CHL 0.9% 50 ML IV SCH (11:27)
[2020-07-14] MEDS: amLODIPine BESYLATE 5 MG TAB PO SCH (11:28)
[2020-07-14] MEDS: THIAMINE 100mg/ml INJ (200mg/2ml VIAL) IV SCH (11:28)
[2020-07-14] MEDS: FAMOTIDINE (10MG/ML) 2ML VL IV SCH ×2 (11:29→22:20)
--- NOTE | 2020-07-14 12:14 | NUR ---
assessment Patient is a 84 year old female who is alert and oriented. Prior to admission patient resided at [facility] and was independent. Patient will return to [facility] on discharge. Patients PCP is DR Fischer. Prior to admission patient had a fever and was feeling ill so the facility called 911 and patient was admitted to ICU. Patient uses a fww at the facility. Patient has an advanced directive and her POA is her daughter Shaista Holt [phone]. I informed Shaista and patient I will continue to monitor and follow up as appropriate for any post discharge needs. I informed patient she has a right to speak to a social sciences lecturer regarding all care. I informed patient she has a right to participate in any and all discharge planning. Patient verbalized understanding and agreed to discharge plan home. Addendum: 07/14/20 at 1218 by Shaista CARRERA Amended: Links added.
--- NOTE | 2020-07-14 12:46 | NUR ---
Nutrition Followup Notes Pt wt is 77.5 kg Pt was awake when rounded this morning. Pt is with a 2gm Sodium diet, appetite is poor aeb no PO intake in the last two days. Pt stated she isn't hungry. Encouraged pt to eat to build and retain strength and to help her heal. Pt stated she would make an effort to improve PO intake. Est Energy needs: 6109-0050 kcals (17-20 kcal/kgBW) Est Protein needs: 88-97 gms/day (1.0-1.1 gm/kgBW) Will continue to monitor and reassess prn. LABS: GLUC 119 H, ALB 2.4 L GI: Pt had 2 Bm on 07/14 per RN doc BS: 13 mod risk. Refer to wound assessment report for full details. PES: 1) Increased nutrient needs r/t pt with no PO intake aeb pt is sedated, intubated, NPO 2) Altered nutrition related lab values r/t current medical condition aeb hyperglycemia, hypocalcemia, hypoalbuminemia Comments Will continue to monitor PO status, skin status, pertinent labs and weight trends. Will f/u in 3-5 days. 1) Continue to carefully monitor pt NPO status 2) Gradually advance pt to oral 2gm Sodium diet when medically feasible and as tolerated 3) Continue current plan of care
[2020-07-14 13:00] VITALS: BP 137/91
[2020-07-14] MEDS ORDERED: METOPROLOL TARTRATE 1MG/1ML-5ML VIAL IV ONE (14:00)
[2020-07-14] MEDS ORDERED: dilTIAZem 25 MG/5 ML VIAL IV ONE (14:15)
--- NOTE | 2020-07-14 14:30 | NUR ---
THIS RN LET DR. LASSITER KNOW PT. WAS TACHYCARDIC IN THE 130'S. GAVE ORDERS FOR BETABLOCKERS AND A CARDIAC CONSULT. WILL CONITNUE TO MONITOR PT.
--- NOTE | 2020-07-14 15:24 | NUR ---
PATIENT HAS NO DIFFICULTY SWALLOWING. CANCELLED EVALUATION PER RN AND PATIENT.
[2020-07-14 16:34] VITALS: BP 152/89
[2020-07-14] MEDS ORDERED: DIGOXIN (250MCG/ML) 2 ML AMPULE IV ONE (18:30)
[2020-07-14] MEDS ORDERED: AMIODARONE HCL 200 MG TAB PO ONE (18:30)
[2020-07-14 22:00] VITALS: BP 163/91
[2020-07-14] MEDS: METOPROLOL TARTRATE 25 MG TAB PO SCH (22:20)
[2020-07-14] MEDS: LABETALOL HCL 5 MG/ML 4ML SYRINGE IV PRN (23:44)
[2020-07-15] MEDS: IPRATROPIUM BROM 0.5 MG/2.5ML INH SOL NEB SCH ×7 (02:21→22:29)
[2020-07-15] MEDS: ALBUTEROL SULF 2.5 MG/0.5ML(0.5%) NEB SOLN NEB PRN ×5 (02:21→22:24)
[2020-07-15 05:21] VITALS: BP 162/91
[2020-07-15] MEDS: FUROSEMIDE 40 MG/4 ML VIAL IV SCH ×2 (06:20→16:55)
--- NOTE | 2020-07-15 06:20 | NUR ---
22G to the right wrist dc'd due to leaking. Catheter tip still intact upon removal.
[2020-07-15 09:00] VITALS: BP 150/99
[2020-07-15] MEDS: CHOLECALCIFEROL (VITD3) 2,000 UNIT CAP PO SCH (09:19)
[2020-07-15] MEDS: ERTAPENEM SOD INJ 1 GM in SODIUM CHL 0.9% 50 ML IV SCH (09:19)
[2020-07-15] MEDS: amLODIPine BESYLATE 5 MG TAB PO SCH (09:20)
[2020-07-15] MEDS: FAMOTIDINE (10MG/ML) 2ML VL IV SCH ×2 (09:20→22:10)
[2020-07-15] MEDS: METOPROLOL TARTRATE 25 MG TAB PO SCH ×2 (09:20→22:11)
[2020-07-15] MEDS: AMIODARONE HCL 200 MG TAB PO SCH ×2 (09:21→22:10)
[2020-07-15] MEDS: THIAMINE 100mg/ml INJ (200mg/2ml VIAL) IV SCH (09:21)
[2020-07-15] MEDS: ENOXAPARIN SOD 80 MG/0.8ML SYRINGE SC SCH (11:16)
[2020-07-15 13:00] VITALS: BP 147/82
--- NOTE | 2020-07-15 13:44 | NUR ---
Informed CN regarding patient has Positive ESBL in urine since 07/12/20. House sup(Cora) and Matt (MARK) aware.
--- NOTE | 2020-07-15 13:51 | NUR ---
re-assessment Per consult SNF placement for rehab. I spoke to patients daughter Shaista and per Shaista she has no preference on what facility patient goes to. Per Shaista ask patient. I spoke with patient and patient informed me she does not like [facility] and wants [facility]. order has been sent to [facility]. waiting on reply back now. Addendum: 07/15/20 at 1354 by Shaista Chopra Amended: Links added.
--- NOTE | 2020-07-15 15:48 | NUR ---
re-assessment Per Connie at [facility] she has accepted patient to facility. Room and transportation will be provided in the AM when patient is discharged. Patient has been notified. Call report on discharge to [phone]. Addendum: 07/15/20 at 1631 by Shaista CARRERA Amended: Links added.
[2020-07-15 17:00] VITALS: BP 161/92
[2020-07-15 18:06] VITALS: BP 144/81
[2020-07-15 22:00] VITALS: BP_SYST 134; BP_SYST 141; BP_DIAS 95; BP_DIAS 97
[2020-07-16] VITALS (7 sets, daily range): BP systolic 128–168; BP diastolic 72–105
--- NOTE | 2020-07-16 00:05 | NUR ---
Patient was attempting to get out of bed and was standing/ Staff was alerted by the bed alarm. She also attempted to pull out murry catheter. Patient was reoriented to her surroundings but patient still is confused despite my efforts. Patient placed back in bed and bed alarm placed back on. Relocated near patient room to maintain better oversight. Will continue to monitor.
[2020-07-16] MEDS: ENOXAPARIN SOD 80 MG/0.8ML SYRINGE SC SCH ×2 (00:15→12:17)
[2020-07-16] MEDS: FUROSEMIDE 40 MG/4 ML VIAL IV SCH ×2 (06:10→17:24)
[2020-07-16] MEDS: IPRATROPIUM BROM 0.5 MG/2.5ML INH SOL NEB SCH ×6 (06:25→22:00)
--- NOTE | 2020-07-16 09:00 | NUR ---
Opening Shift Note Assumed care of patient, awake and alert. No S/S of distress/SOB or pain. Skin is warm and dry to touch, patient NPO for a stress test, patient tolerated well. Instructed on POC and to call for assist PRN, will continue to monitor for changes Q1hr and PRN.
[2020-07-16] MEDS: CHOLECALCIFEROL (VITD3) 2,000 UNIT CAP PO SCH (09:10)
[2020-07-16] MEDS: ERTAPENEM SOD INJ 1 GM in SODIUM CHL 0.9% 50 ML IV SCH (09:24)
[2020-07-16] MEDS: FAMOTIDINE (10MG/ML) 2ML VL IV SCH ×2 (09:24→22:00)
[2020-07-16] MEDS: THIAMINE 100mg/ml INJ (200mg/2ml VIAL) IV SCH (09:25)
[2020-07-16] MEDS ORDERED: ADENOSINE 63 MG in GIVE UN-DILUTED 0 ML IV STA (09:41)
--- NOTE | 2020-07-16 10:50 | NUR ---
Respiratory note: PT REFUSING MEDNEB TX AT THIS TIME. SPO2 95% ON 2LPM NASAL CANNULA. NO S/S OF DISTRESS. NURSE'S AIDE AT BEDSIDE.
[2020-07-16] MEDS: amLODIPine BESYLATE 5 MG TAB PO SCH (12:16)
[2020-07-16] MEDS: AMIODARONE HCL 200 MG TAB PO SCH ×2 (12:16→22:00)
[2020-07-16] MEDS: METOPROLOL TARTRATE 25 MG TAB PO SCH ×2 (12:17→22:00)
--- NOTE | 2020-07-16 20:48 | NUR ---
Received patient alert and oriented. Verbally responsive but bery limited, perhaps associated with personality. Breathing evenly and easy, on 2LPM/NC. Able to finish sentences without difficulty. Afebrile. B/L leg swelling still noted. Landis draining sufficient amount of clear yellowish output. Denied pain at this time. Still on contact isolation for ESBL. Will monitor. Pending transfer to SNF.
--- NOTE | 2020-07-16 22:06 | NUR ---
Respiratory note: PT REFUSING BREATHING TX AT THIS TIME AND WANTS TO SLEEP. NO RESP DISTRESS NOTED. PT REMAINS ON NC2L. WILL CONTINUE TO MONITOR T/O SHIFT.
[2020-07-17] MEDS: ENOXAPARIN SOD 80 MG/0.8ML SYRINGE SC SCH ×2 (00:14→12:26)
[2020-07-17] MEDS: IPRATROPIUM BROM 0.5 MG/2.5ML INH SOL NEB SCH ×6 (02:00→22:33)
--- NOTE | 2020-07-17 02:00 | NUR ---
Respiratory note: PT REFUSING LAST BREATHING TX AT THIS TIME AND WANTS TO SLEEP. NO RESP DISTRESS NOTED. PT REMAINS ON NC2L. WILL CONTINUE TO MONITOR T/O SHIFT.
[2020-07-17 05:00] VITALS: BP 144/79
[2020-07-17] MEDS: FUROSEMIDE 40 MG/4 ML VIAL IV SCH ×2 (06:11→17:17)
--- NOTE | 2020-07-17 07:30 | NUR ---
Opening Shift Note Assumed care of patient, awake and alert. No S/S of distress/SOB or pain. Instructed on POC and to call for assist PRN, will continue to monitor for changes Q1hr and PRN. Bed is locked and in lowest position. Call light within reach.
[2020-07-17 08:40] VITALS: BP 140/70
[2020-07-17] MEDS: ERTAPENEM SOD INJ 1 GM in SODIUM CHL 0.9% 50 ML IV SCH (09:49)
[2020-07-17] MEDS: METOPROLOL TARTRATE 25 MG TAB PO SCH ×2 (09:50→22:28)
[2020-07-17] MEDS: ENALAPRIL MALEATE 2.5 MG TAB PO SCH (09:51)
[2020-07-17] MEDS: CHOLECALCIFEROL (VITD3) 2,000 UNIT CAP PO SCH (09:51)
[2020-07-17] MEDS: AMIODARONE HCL 200 MG TAB PO SCH ×2 (09:52→22:28)
[2020-07-17] MEDS: FAMOTIDINE (10MG/ML) 2ML VL IV SCH ×2 (09:52→22:28)
[2020-07-17] MEDS: THIAMINE 100mg/ml INJ (200mg/2ml VIAL) IV SCH (09:52)
--- NOTE | 2020-07-17 12:18 | NUR ---
Nutrition Followup Notes Pt wt is 73.8 kg Pt was sleeping with no family at bedside at time of rounds. Pt appears to have an improved appetite aeb pt with 75% po intake avg x2 days per Rn note. Est Energy needs: 4239-7619 kcals (17-20 kcal/kgBW) Est Protein needs: 88-97 gms/day (1.0-1.1 gm/kgBW) Will continue to monitor and reassess prn. LABS: CO2 34H, BUN 21H, GLUC 119H, Alb 2.4L GI: Pt had 2 Bms on 07/15 per RN doc BS: 15 mod risk. Refer to wound assessment report for full details. PES: Resolved 1) Increased nutrient needs r/t pt with no PO intake aeb pt is sedated, intubated, NPO 2) Altered nutrition related lab values r/t current medical condition aeb hyperglycemia, hypocalcemia, hypoalbuminemia Comments Will continue to monitor PO status, skin status, pertinent labs and weight trends. Will f/u in 3-5 days. 1) Continue oral 2gm Sodium diet as tolerated 2) Continue current plan of care
[2020-07-17 12:30] VITALS: BP 129/78
--- NOTE | 2020-07-17 15:48 | NUR ---
PT PAGED PT TO WORK WITH PATIENT IN ROOM 283. PATIENT WOULD LIKE TO GET OUT OF BED AND WORK WITH PT. WILL AWAIT FOR PT AT BEDSIDE.
[2020-07-17 16:38] VITALS: BP 161/86
[2020-07-17 22:00] VITALS: BP 134/87
[2020-07-18] MEDS: IPRATROPIUM BROM 0.5 MG/2.5ML INH SOL NEB SCH ×6 (02:00→22:14)
[2020-07-18 05:00] VITALS: BP 110/75
[2020-07-18] MEDS: FUROSEMIDE 40 MG/4 ML VIAL IV SCH ×2 (06:00→17:38)
[2020-07-18] MEDS: ALBUTEROL SULF 2.5 MG/0.5ML(0.5%) NEB SOLN NEB PRN ×5 (06:33→22:14)
--- NOTE | 2020-07-18 07:30 | NUR ---
Opening Shift Note Assumed care of patient, awake and alert. No S/S of distress/SOB or pain. Landis is draining, bag hung below and its free of kinks. Instructed on POC and to call for assist PRN, will continue to monitor for changes Q1hr and PRN. Bed is locked and in lowest position. Call light within reach.
[2020-07-18 08:55] VITALS: BP 155/89
[2020-07-18] MEDS: ERTAPENEM SOD INJ 1 GM in SODIUM CHL 0.9% 50 ML IV SCH (09:44)
[2020-07-18] MEDS: FAMOTIDINE (10MG/ML) 2ML VL IV SCH ×2 (09:45→22:51)
[2020-07-18] MEDS: AMIODARONE HCL 200 MG TAB PO SCH ×2 (09:45→22:51)
[2020-07-18] MEDS: ENALAPRIL MALEATE 2.5 MG TAB PO SCH (09:46)
[2020-07-18] MEDS: CHOLECALCIFEROL (VITD3) 2,000 UNIT CAP PO SCH (09:46)
[2020-07-18] MEDS: METOPROLOL TARTRATE 25 MG TAB PO SCH ×2 (09:47→22:52)
[2020-07-18] MEDS: THIAMINE 100mg/ml INJ (200mg/2ml VIAL) IV SCH (09:47)
[2020-07-18 12:27] VITALS: BP 131/74
[2020-07-18] MEDS: ENOXAPARIN SOD 80 MG/0.8ML SYRINGE SC SCH ×3 (12:31→23:40)
[2020-07-18] MEDS ORDERED: MAGNESIUM OXIDE 400 MG TAB PO ONE (16:45)
[2020-07-18 16:54] VITALS: BP 127/71
[2020-07-18 21:00] VITALS: BP 129/72
[2020-07-18] MEDS ORDERED: MAGNESIUM OXIDE 400 MG TAB PO SCH (22:00)
[2020-07-18] MEDS ORDERED: ENOXAPARIN SOD 100 MG/1 ML SYRINGE SC ONE (23:05)
[2020-07-19] MEDS: IPRATROPIUM BROM 0.5 MG/2.5ML INH SOL NEB SCH ×6 (02:00→22:43)
[2020-07-19 05:00] VITALS: BP 114/59
[2020-07-19] MEDS: FUROSEMIDE 40 MG/4 ML VIAL IV SCH ×2 (06:00→18:30)
--- NOTE | 2020-07-19 06:36 | NUR ---
Respiratory note: 0600 MED-NEB NOT ADMINISTERED PATIENT IS SLEEPING AND REQUESTED NOT TO BE WOKEN UP FOR IT.
[2020-07-19 06:55] LABS: Basophils # (auto) 0.1 10 ^3/uL (0-0.2); Basophils % (auto) 0.7 % (0.0-2.0); Eosinophils # (auto) 0.4 10 ^3/uL (0-0.8); Eosinophils % (auto) 4.5 % (0.0-7.0); Hematocrit 45.9 % (36.0-46.0); Hemoglobin 15.4 g/dL (12.2-16.2); Lymphocytes # (auto) 1.9 10 ^3/uL (0.4-5.4); Lymphocytes % (auto) 20.5 % (10.0-50.0); Mean Corpuscular Hemoglobin 32.7 pg (28.0-32.0); Mean Corpuscular Hgb Conc. 33.6 g/dL (32.0-36.0); Mean Corpuscular Volume 97.2 fL (80.0-100.0); Monocytes # (auto) 0.9 10 ^3/uL (0-1.3); Monocytes % (auto) 9.5 % (0.0-12.0); Neutrophils # (auto) 5.9 10 ^3/uL (1.6-8.6); Neutrophils % (auto) 64.8 % (37.0-80.0); Nucleated Red Blood Cells % 0.1 %; Platelet Count (auto) 229 10^3/uL (140-450); Red Blood Cells 4.72 10^6/uL (4.0-5.20); Red Cell Distribution Width 12.7 % (11.8-14.3); White Blood Cell 9.2 10^3/uL (4.4-10.8)
--- NOTE | 2020-07-19 07:03 | NUR ---
Pericare/catheter care done. Patient requesting shower today. Will pass on to next shift.
[2020-07-19 07:15] LABS: Calcium 9.3 mg/dL (8.5-10.1); Magnesium 2.6 mg/dL (1.6-2.6); Potassium 3.3 mmol/L (3.5-5.1)
[2020-07-19 07:23] LABS: BUN/Creatinine Ratio 45.4
--- NOTE | 2020-07-19 07:45 | NUR ---
Opening Note Received report from bessemer bottom maker RN. Patient is awake, alert and oriented x4. No signs or symptoms of distress noted at this time. Patient is 2L NC, respirations even and unlabored. Patient denies pain at this time. Landis catheter in place, patent and drianing. Reviewed plan of care with patient, patient verbalized understanding. Bed in low and locked position, call light within reach. Will continue to monitor Q1 hour and PRN.
[2020-07-19] MEDS: AMIODARONE HCL 200 MG TAB PO SCH ×2 (09:24→22:06)
[2020-07-19] MEDS: ENALAPRIL MALEATE 2.5 MG TAB PO SCH (09:24)
[2020-07-19] MEDS: METOPROLOL TARTRATE 25 MG TAB PO SCH ×2 (09:24→22:06)
[2020-07-19] MEDS: THIAMINE 100mg/ml INJ (200mg/2ml VIAL) IV SCH (09:25)
[2020-07-19] MEDS: ERTAPENEM SOD INJ 1 GM in SODIUM CHL 0.9% 50 ML IV SCH (09:25)
[2020-07-19] MEDS: FAMOTIDINE (10MG/ML) 2ML VL IV SCH ×2 (09:25→22:06)
[2020-07-19 09:39] VITALS: BP 155/96
--- NOTE | 2020-07-19 09:46 | NUR ---
Physical therapy at bedside Physical therapist at bedside working with patient. Will continue to monitor Q1 hour and PRN.
[2020-07-19] MEDS ORDERED: CHOLECALCIFEROL (VITD3) 1,000UNIT=25mCg TAB PO SCH (10:00)
[2020-07-19] MEDS ORDERED: POTASSIUM CHL 20 Meq TABLET PO ONE (10:00)
[2020-07-19] MEDS: ALBUTEROL SULF 2.5 MG/0.5ML(0.5%) NEB SOLN NEB PRN ×4 (10:49→22:43)
--- NOTE | 2020-07-19 10:59 | NUR ---
Dr. Perkins at bedside MD at bedside discussing plan of care with patient and this RN. Patient to discharge to [facility] later today. Patient verbalized understanding. Will continue to monitor Q1 hour and PRN.
[2020-07-19 13:00] VITALS: BP 128/72
[2020-07-19] MEDS: ENOXAPARIN SOD 80 MG/0.8ML SYRINGE SC SCH (13:00)
--- NOTE | 2020-07-19 15:30 | NUR ---
Landis catheter Verified with Dr. Perkins that patient is to transfer to [facility] with Landis catheter in place.
--- NOTE | 2020-07-19 15:47 | NUR ---
re-assessment Per consult SNF IV ABX Invanz 1gm for [address] Perkins and I called patients daughter to verify what SNF she and patient want. Per patient and per Shaista patients daughter they have requested [facility]. MD order has been sent to [facility]. Per Connie at [facility] patient will go to room 26b and Dr Ziegler is the accepting MD. Patient will be transported by [facility] at 1145pm tonight post discharge. Patient has been notified and she agrees to discharge plan to SNF. Addendum: 07/19/20 at 1550 by Shaista Chopra Amended: Links added.
--- NOTE | 2020-07-19 15:51 | NUR ---
re-assessment Patients room number has changed to 21b since she is ISO for ESBL. Summer RN has been notified and given phone number for report [phone]. Addendum: 07/19/20 at 1554 by Shaista CARRERA Amended: Links added.
[2020-07-19] MEDS: ACETAMINOPHEN 650 mg PER 20.3 mL UD PO PRN (16:36)
--- NOTE | 2020-07-19 16:45 | NUR ---
MRSA swab collected and sent to lab per protocol
[2020-07-19 17:00] VITALS: BP 126/85
--- NOTE | 2020-07-19 19:05 | NUR ---
Closing Note Report given to locker plant attendant RN. No signs or symptoms of distress noted at this time. Patient pending transfer to [facility], awaiting transportation.
--- NOTE | 2020-07-19 19:10 | NUR ---
Opening Shift Note Assumed care of patient, awake and alert. No S/S of distress/SOB or pain. Instructed on POC and to call for assist PRN, will continue to monitor for changes Q1hr and PRN. Patient in the lowest possible position with call light within reach, patient is comfortable and waiting for transfer to [facility]. Will continue to monitor.
[2020-07-19 22:00] VITALS: BP 128/79
--- NOTE | 2020-07-19 23:40 | NUR ---
SBAR report given to KAMRYN Cochran in place for KAMRYN Martinez who is accepting patient at [facility].
--- NOTE | 2020-07-19 23:46 | NUR ---
Patient left with transfer team from [facility]. Patient had no distress noted upon discharge.
== END 2020-07-19 23:40 | DRG 871 ==
LOC: EDBD 11:51 → ER 11:51 → TELE 11:52 → TELE-EAST 20:20 → TELE-WESTW 07-10 15:17 → ICU WEST 07-10 20:35 → TELE-WESTW 07-13 21:00
PROVIDERS: ADMIT Family Medicine; ATTEND Internal Medicine
PROC: 5A1945Z Respiratory Ventilation, 24-96 Consecutive Hours (ICD-10-PCS; principal; 2020-07-10)
PROC: 0BH17EZ Insertion of Endotracheal Airway into Trachea, Via Natural or Artificial Opening (ICD-10-PCS; 2020-07-10)
DX: A41.9 Sepsis, unspecified organism (principal); J18.9 Pneumonia, unspecified organism; J96.01 Acute respiratory failure with hypoxia; I26.93 Single subsegmental thrombotic pulmonary embolism without acute cor pulmonale; J96.02 Acute respiratory failure with hypercapnia; I50.23 Acute on chronic systolic (congestive) heart failure; G93.41 Metabolic encephalopathy; I46.9 Cardiac arrest, cause unspecified; I21.4 Non-ST elevation (NSTEMI) myocardial infarction; J44.1 Chronic obstructive pulmonary disease with (acute) exacerbation; I47.2 Ventricular tachycardia; J44.0 Chronic obstructive pulmonary disease with (acute) lower respiratory infection; E44.0 Moderate protein-calorie malnutrition; N39.0 Urinary tract infection, site not specified; Z20.828 Contact with and (suspected) exposure to other viral communicable diseases; E87.6 Hypokalemia; E83.51 Hypocalcemia; E88.09 Other disorders of plasma-protein metabolism, not elsewhere classified; F32.9 Major depressive disorder, single episode, unspecified; I16.0 Hypertensive urgency; I11.0 Hypertensive heart disease with heart failure; I48.0 Paroxysmal atrial fibrillation; Z83.3 Family history of diabetes mellitus; Z90.710 Acquired absence of both cervix and uterus; Z86.711 Personal history of pulmonary embolism; Z90.49 Acquired absence of other specified parts of digestive tract
CPT/HCPCS: 36415; 36600; 70450; 71045; 71275; 78452; 80048; 80053; 80061; 80202; 81001; 82805; 82962; 83036; 83605; 83735; 83880; 84100; 84443; 84484; 85007; 85025; 85027; 85610; 85730; 87040; 87070; 87077; 87081; 87086; 87088; 87186; 87205; 87426; 93005; 93017; 93306; 94002; 94003; 94640; 96361; 96365; 96367; G0378; J0153; J0330; J0696; J1335; J1815; J2001; J2185; J2250; J2405; J2543; J2704; J3480; J3490; J7060; Q9956

== ENCOUNTER 2021-02-04 12:57 | Inpatient (IN) | payer MEDICARE, OTHER ==
[~2021-02-04] VITALS: Ht 165.1 cm; Wt 83.8 kg
[~2021-02-04 12:57] MED LIST: ALBU108A14 IN; ATOR20TA PO; CHOL400C15 PO; CITA-73 PO; CLON-499 PO; FAMO-12 PO; FLUT250M2 INH; FLUT50SP; FURO1TAB31 PO; LEVA1NEB5 NEB; LOSA-39 PO; MULT-1018 PO; VERA240C2 PO
[2021-02-04 17:21] LABS: Basophils # (auto) 0.1 10 ^3/uL (0-0.2); Basophils % (auto) 0.7 % (0.0-2.0); Eosinophils # (auto) 0 10 ^3/uL (0-0.8); Eosinophils % (auto) 0.4 % (0.0-7.0); Hematocrit 40.9 % (36.0-46.0); Hemoglobin 14.5 g/dL (12.2-16.2); Lymphocytes # (auto) 0.9 10 ^3/uL (0.4-5.4); Lymphocytes % (auto) 10.6 % (10.0-50.0); Mean Corpuscular Hemoglobin 33.5 pg (28.0-32.0); Mean Corpuscular Hgb Conc. 35.5 g/dL (32.0-36.0); Mean Corpuscular Volume 94.1 fL (80.0-100.0); Monocytes # (auto) 0.4 10 ^3/uL (0-1.3); Monocytes % (auto) 4.6 % (0.0-12.0); Neutrophils # (auto) 7.4 10 ^3/uL (1.6-8.6); Neutrophils % (auto) 83.7 % (37.0-80.0); Platelet Count (auto) 159 10^3/uL (140-450); Red Blood Cells 4.34 10^6/uL (4.0-5.20); Red Cell Distribution Width 14.5 % (11.8-14.3); White Blood Cell 8.8 10^3/uL (4.4-10.8)
[2021-02-04 17:40] LABS: Albumin 3.4 g/dL (3.4-5.0); Calcium 8.6 mg/dL (8.5-10.1); INR 1.14 (0.9-1.15); Magnesium 2.4 mg/dL (1.6-2.6); Partial Thromboplastin Time 29.4 sec (23.0-31.2)
[2021-02-04 17:44] LABS: BUN/Creatinine Ratio 24.7; Total Protein 6.9 g/dL (6.4-8.2)
[2021-02-04] MEDS ORDERED: MORPHINE SULF INJ 2 MG/ML SYRINGE 1ML IV ONE (18:15)
[2021-02-04] MEDS ORDERED: ONDANSETRON HCL 4 MG/2 ML VIAL IV ONE (18:15)
[2021-02-04] MEDS: MORPHINE SULF INJ 2 MG/ML SYRINGE 1ML IV ONE ×2 (18:17→18:22)
[2021-02-04] MEDS: ONDANSETRON HCL 4 MG/2 ML VIAL IV ONE ×2 (18:18→18:23)
[2021-02-04] MEDS ORDERED: PROMETHAZINE HCL 25 MG/ML 1ML ONE (19:04)
[2021-02-04] MEDS ORDERED: DEXTROSE (50%) 50ML SYRG IV PRN (19:15)
[2021-02-04] MEDS ORDERED: PROMETHAZINE HCL 25 MG/ML 1ML IV ONE (19:15)
[2021-02-04] MEDS ORDERED: DOCUSATE CALCIUM 240 MG CAP PO PRN (19:15)
[2021-02-04] MEDS ORDERED: POTASSIUM CHL 20MEQ/100ML 100 ML IV ONE (19:15)
[2021-02-04] MEDS ORDERED: MORPHINE SULF INJ 2 MG/ML SYRINGE 1ML IV PRN (19:15)
[2021-02-04] MEDS ORDERED: ACETAMINOPHEN 500 MG TAB PO PRN (19:15)
[2021-02-04] MEDS ORDERED: NITROGLYCERIN 0.4 MG SL TAB SL PRN (19:15)
[2021-02-04] MEDS: ACCU-CHEK COMFORT CURVE STRIP VI SCH (20:34)
[2021-02-04] MEDS: InsuLIN REG 1unit/0.01ml Soln (100units/ml) SC SCH (20:39)
[2021-02-04] MEDS: ENOXAPARIN SOD 40 MG/0.4 ML SYRINGE SC SCH (20:39)
[2021-02-04] MEDS: SODIUM CHLORIDE 0.9% 1,000 ML IV SCH ×2 (20:40→22:49)
[2021-02-04] MEDS: BUDESONIDE (INHALATION) 0.5 MG/2 ML NEB NEB SCH (21:25)
[2021-02-04 21:34] VITALS: BP 175/66
[2021-02-04] MEDS: INSULIN LANTUS (GLARGINE) 1 /0.01ml (100units/ml) SC SCH (22:52)
[2021-02-05] MEDS: ACCU-CHEK COMFORT CURVE STRIP VI SCH ×6 (00:23→22:32)
[2021-02-05] MEDS: InsuLIN REG 1unit/0.01ml Soln (100units/ml) SC SCH ×6 (00:30→22:49)
[2021-02-05] MEDS: hydrALAZINE HCL 20 MG/ML VL IV PRN ×2 (03:29→08:01)
[2021-02-05] MEDS: MORPHINE SULF INJ 2 MG/ML SYRINGE 1ML IV PRN ×2 (04:53→09:29)
[2021-02-05] MEDS: ONDANSETRON HCL 4 MG/2 ML VIAL IV PRN ×2 (04:53→09:29)
[2021-02-05 08:39] LABS: Basophils # (auto) 0 10 ^3/uL (0-0.2); Basophils % (auto) 0.5 % (0.0-2.0); Eosinophils # (auto) 0 10 ^3/uL (0-0.8); Eosinophils % (auto) 0.3 % (0.0-7.0); Hematocrit 38.7 % (36.0-46.0); Hemoglobin 13.5 g/dL (12.2-16.2); Lymphocytes # (auto) 1.5 10 ^3/uL (0.4-5.4); Lymphocytes % (auto) 16.3 % (10.0-50.0); Mean Corpuscular Hemoglobin 33.1 pg (28.0-32.0); Mean Corpuscular Hgb Conc. 34.8 g/dL (32.0-36.0); Mean Corpuscular Volume 95.2 fL (80.0-100.0); Monocytes # (auto) 0.7 10 ^3/uL (0-1.3); Neutrophils # (auto) 6.8 10 ^3/uL (1.6-8.6); Neutrophils % (auto) 74.9 % (37.0-80.0); Platelet Count (auto) 161 10^3/uL (140-450); Red Blood Cells 4.06 10^6/uL (4.0-5.20); Red Cell Distribution Width 14.6 % (11.8-14.3); White Blood Cell 9.1 10^3/uL (4.4-10.8)
[2021-02-05 08:58] LABS: Calcium 8.1 mg/dL (8.5-10.1); Potassium 3.2 mmol/L (3.5-5.1)
[2021-02-05 09:01] LABS: BUN/Creatinine Ratio 26.3; Bilirubin, Total 1.2 mg/dL (0.2-1.0); Total Protein 6.3 g/dL (6.4-8.2)
[2021-02-05] MEDS: PANTOPRAZOLE 40 MG TAB PO SCH (09:29)
[2021-02-05] MEDS: CITALOPRAM HYDROBR 20 MG TAB PO SCH (09:29)
[2021-02-05] MEDS: BUDESONIDE (INHALATION) 0.5 MG/2 ML NEB NEB SCH ×2 (09:31→21:57)
[2021-02-05] MEDS: LOSARTAN POTASSIUM 50 MG TAB PO SCH (14:01)
[2021-02-05] MEDS: cloNIDine HCL 0.1 MG TAB PO SCH ×2 (14:01→22:31)
[2021-02-05] MEDS: VERAPAMIL HCL 120 mg ER tab PO SCH (14:02)
[2021-02-05 15:52] LABS: Urine Bacteria MANY /hpf (None Seen); Urine Blood TRACE /uL (Negative); Urine Mucus FEW (None Seen); Urine Specific Gravity 1.016 (1.001-1.035); Urine WBC 103 /hpf (0 - 5)
[2021-02-05 16:32] VITALS: BP 125/58
[2021-02-05] MEDS: ENOXAPARIN SOD 40 MG/0.4 ML SYRINGE SC SCH (17:40)
[2021-02-05 21:13] VITALS: BP 142/62
[2021-02-05] MEDS: ALBUTEROL SULF 2.5 MG/0.5ML(0.5%) NEB SOLN NEB PRN (21:57)
[2021-02-05] MEDS ORDERED: ATORVASTATIN 20 MG TAB PO SCH (22:00)
[2021-02-05] MEDS: SODIUM CHLORIDE 0.9% 1,000 ML IV SCH (22:31)
[2021-02-05] MEDS: INSULIN LANTUS (GLARGINE) 1 /0.01ml (100units/ml) SC SCH (22:48)
[2021-02-06 05:00] VITALS: BP 160/74
[2021-02-06] MEDS: MORPHINE SULF INJ 2 MG/ML SYRINGE 1ML IV PRN ×2 (05:05→15:35)
[2021-02-06 06:16] LABS: Basophils # (auto) 0 10 ^3/uL (0-0.2); Basophils % (auto) 0.7 % (0.0-2.0); Eosinophils # (auto) 0.1 10 ^3/uL (0-0.8); Eosinophils % (auto) 1.6 % (0.0-7.0); Hematocrit 35.8 % (36.0-46.0); Hemoglobin 12.2 g/dL (12.2-16.2); Lymphocytes # (auto) 1.1 10 ^3/uL (0.4-5.4); Lymphocytes % (auto) 17.9 % (10.0-50.0); Mean Corpuscular Hemoglobin 32.4 pg (28.0-32.0); Mean Corpuscular Hgb Conc. 34.1 g/dL (32.0-36.0); Mean Corpuscular Volume 95.1 fL (80.0-100.0); Monocytes # (auto) 0.6 10 ^3/uL (0-1.3); Monocytes % (auto) 8.9 % (0.0-12.0); Neutrophils # (auto) 4.4 10 ^3/uL (1.6-8.6); Neutrophils % (auto) 70.9 % (37.0-80.0); Nucleated Red Blood Cells % 0.1 %; Platelet Count (auto) 136 10^3/uL (140-450); Red Blood Cells 3.77 10^6/uL (4.0-5.20); Red Cell Distribution Width 14.7 % (11.8-14.3); White Blood Cell 6.2 10^3/uL (4.4-10.8)
[2021-02-06] MEDS: InsuLIN REG 1unit/0.01ml Soln (100units/ml) SC SCH ×4 (06:29→21:38)
[2021-02-06] MEDS: ACCU-CHEK COMFORT CURVE STRIP VI SCH ×4 (06:29→21:38)
[2021-02-06 06:35] LABS: Potassium 3.2 mmol/L (3.5-5.1)
[2021-02-06 06:39] LABS: Albumin 2.6 g/dL (3.4-5.0); BUN/Creatinine Ratio 25.9; Calcium 8.4 mg/dL (8.5-10.1)
[2021-02-06 06:42] LABS: Total Protein 5.6 g/dL (6.4-8.2)
[2021-02-06 09:00] VITALS: BP 164/78
[2021-02-06] MEDS: CITALOPRAM HYDROBR 20 MG TAB PO SCH (09:34)
[2021-02-06] MEDS: cloNIDine HCL 0.1 MG TAB PO SCH ×2 (09:34→21:28)
[2021-02-06] MEDS: PANTOPRAZOLE 40 MG TAB PO SCH (09:35)
[2021-02-06] MEDS: VERAPAMIL HCL 120 mg ER tab PO SCH (09:35)
[2021-02-06] MEDS: LOSARTAN POTASSIUM 50 MG TAB PO SCH (09:35)
[2021-02-06] MEDS: ALBUTEROL SULF 2.5 MG/0.5ML(0.5%) NEB SOLN NEB PRN ×2 (10:01→22:27)
[2021-02-06] MEDS: BUDESONIDE (INHALATION) 0.5 MG/2 ML NEB NEB SCH ×2 (10:01→22:26)
[2021-02-06] MEDS: SODIUM CHLORIDE 0.9% 1,000 ML IV SCH (11:15)
[2021-02-06] MEDS ORDERED: POTASSIUM EFFERVESENT TAB 25 MEQ PO ONE (11:45)
[2021-02-06] MEDS ORDERED: cefTRIAXone 1GM/50ML D5W 50 ML IV ONE (12:00)
[2021-02-06] MEDS: Glucerna Carbsteady SHAKE Vanilla 8oz PO SCH ×2 (12:25→18:14)
[2021-02-06 13:00] VITALS: BP 145/63
[2021-02-06 17:00] VITALS: BP 120/64
[2021-02-06] MEDS: ENOXAPARIN SOD 40 MG/0.4 ML SYRINGE SC SCH (17:22)
[2021-02-06] MEDS: INSULIN LANTUS (GLARGINE) 1 /0.01ml (100units/ml) SC SCH (21:38)
[2021-02-06 22:04] VITALS: BP 130/54
[2021-02-06] MEDS: IPRATROPIUM BROM 0.5 MG/2.5ML INH SOL NEB PRN (22:27)
[2021-02-07] VITALS (8 sets, daily range): BP systolic 121–166; BP diastolic 59–108
[2021-02-07] MEDS: SODIUM CHLORIDE 0.9% 1,000 ML IV SCH ×2 (00:59→15:52)
[2021-02-07 06:04] LABS: Basophils # (auto) 0 10 ^3/uL (0-0.2); Basophils % (auto) 0.7 % (0.0-2.0); Eosinophils # (auto) 0.1 10 ^3/uL (0-0.8); Eosinophils % (auto) 1.9 % (0.0-7.0); Hematocrit 32.3 % (36.0-46.0); Hemoglobin 11.5 g/dL (12.2-16.2); Lymphocytes # (auto) 0.9 10 ^3/uL (0.4-5.4); Lymphocytes % (auto) 19.8 % (10.0-50.0); Mean Corpuscular Hemoglobin 33.9 pg (28.0-32.0); Mean Corpuscular Hgb Conc. 35.5 g/dL (32.0-36.0); Mean Corpuscular Volume 95.3 fL (80.0-100.0); Monocytes # (auto) 0.5 10 ^3/uL (0-1.3); Monocytes % (auto) 9.7 % (0.0-12.0); Neutrophils # (auto) 3.2 10 ^3/uL (1.6-8.6); Neutrophils % (auto) 67.9 % (37.0-80.0); Platelet Count (auto) 122 10^3/uL (140-450); Red Blood Cells 3.39 10^6/uL (4.0-5.20); Red Cell Distribution Width 14.8 % (11.8-14.3); White Blood Cell 4.7 10^3/uL (4.4-10.8)
[2021-02-07 06:20] LABS: Potassium 3.5 mmol/L (3.5-5.1)
[2021-02-07] MEDS: InsuLIN REG 1unit/0.01ml Soln (100units/ml) SC SCH ×4 (06:30→22:00)
[2021-02-07] MEDS: ACCU-CHEK COMFORT CURVE STRIP VI SCH ×4 (06:30→22:00)
[2021-02-07 06:32] LABS: BUN/Creatinine Ratio 27.1; Calcium 8.2 mg/dL (8.5-10.1)
[2021-02-07] MEDS: Glucerna Carbsteady SHAKE Vanilla 8oz PO SCH ×3 (08:20→17:39)
[2021-02-07] MEDS: cefTRIAXone 1GM/50ML D5W 50 ML IV SCH (08:52)
[2021-02-07] MEDS: BUDESONIDE (INHALATION) 0.5 MG/2 ML NEB NEB SCH ×2 (09:11→21:52)
[2021-02-07] MEDS: ALBUTEROL SULF 2.5 MG/0.5ML(0.5%) NEB SOLN NEB PRN ×2 (09:11→21:52)
[2021-02-07] MEDS: VERAPAMIL HCL 120 mg ER tab PO SCH (10:03)
[2021-02-07] MEDS: CITALOPRAM HYDROBR 20 MG TAB PO SCH (10:03)
[2021-02-07] MEDS: LOSARTAN POTASSIUM 50 MG TAB PO SCH (10:03)
[2021-02-07] MEDS: cloNIDine HCL 0.1 MG TAB PO SCH ×2 (10:04→23:31)
[2021-02-07] MEDS: PANTOPRAZOLE 40 MG TAB PO SCH (10:04)
[2021-02-07] MEDS: ENOXAPARIN SOD 40 MG/0.4 ML SYRINGE SC SCH (17:39)
[2021-02-07] MEDS: IPRATROPIUM BROM 0.5 MG/2.5ML INH SOL NEB PRN (21:52)
[2021-02-07] MEDS: INSULIN LANTUS (GLARGINE) 1 /0.01ml (100units/ml) SC SCH (22:00)
[2021-02-08] MEDS: SODIUM CHLORIDE 0.9% 1,000 ML IV SCH ×3 (03:15→20:29)
[2021-02-08 05:00] VITALS: BP 137/54
[2021-02-08] MEDS: BUDESONIDE (INHALATION) 0.5 MG/2 ML NEB NEB SCH ×2 (06:24→22:29)
[2021-02-08 06:39] LABS: Basophils # (auto) 0 10 ^3/uL (0-0.2); Basophils % (auto) 0.6 % (0.0-2.0); Eosinophils # (auto) 0.1 10 ^3/uL (0-0.8); Eosinophils % (auto) 2.6 % (0.0-7.0); Hematocrit 30.6 % (36.0-46.0); Hemoglobin 10.5 g/dL (12.2-16.2); Lymphocytes # (auto) 0.8 10 ^3/uL (0.4-5.4); Lymphocytes % (auto) 16.6 % (10.0-50.0); Mean Corpuscular Hemoglobin 32.8 pg (28.0-32.0); Mean Corpuscular Hgb Conc. 34.4 g/dL (32.0-36.0); Mean Corpuscular Volume 95.4 fL (80.0-100.0); Monocytes # (auto) 0.4 10 ^3/uL (0-1.3); Monocytes % (auto) 9.4 % (0.0-12.0); Neutrophils # (auto) 3.3 10 ^3/uL (1.6-8.6); Neutrophils % (auto) 70.8 % (37.0-80.0); Nucleated Red Blood Cells % 0.1 %; Platelet Count (auto) 125 10^3/uL (140-450); Red Cell Distribution Width 14.6 % (11.8-14.3); White Blood Cell 4.6 10^3/uL (4.4-10.8)
[2021-02-08] MEDS: InsuLIN REG 1unit/0.01ml Soln (100units/ml) SC SCH ×4 (06:41→21:45)
[2021-02-08] MEDS: ACCU-CHEK COMFORT CURVE STRIP VI SCH ×4 (06:43→21:47)
[2021-02-08 06:45] LABS: Calcium 8.2 mg/dL (8.5-10.1); Potassium 3.6 mmol/L (3.5-5.1)
[2021-02-08 06:49] LABS: BUN/Creatinine Ratio 38.6
[2021-02-08 08:33] VITALS: BP 135/60
[2021-02-08] MEDS: Glucerna Carbsteady SHAKE Vanilla 8oz PO SCH ×3 (08:45→18:15)
[2021-02-08] MEDS: cefTRIAXone 1GM/50ML D5W 50 ML IV SCH (08:45)
[2021-02-08] MEDS: CITALOPRAM HYDROBR 20 MG TAB PO SCH (10:08)
[2021-02-08] MEDS: VERAPAMIL HCL 120 mg ER tab PO SCH (10:08)
[2021-02-08] MEDS: cloNIDine HCL 0.1 MG TAB PO SCH ×2 (10:08→21:55)
[2021-02-08] MEDS: PANTOPRAZOLE 40 MG TAB PO SCH (10:09)
[2021-02-08] MEDS: LOSARTAN POTASSIUM 50 MG TAB PO SCH (10:09)
[2021-02-08] MEDS ORDERED: levoFLOXacin 500MG 100 ML IV ONE (12:30)
[2021-02-08 12:33] VITALS: BP 141/64
[2021-02-08 17:00] VITALS: BP 124/52
[2021-02-08] MEDS: ENOXAPARIN SOD 40 MG/0.4 ML SYRINGE SC SCH (17:25)
[2021-02-08] MEDS: INSULIN LANTUS (GLARGINE) 1 /0.01ml (100units/ml) SC SCH (21:46)
[2021-02-08 22:00] VITALS: BP 165/76
[2021-02-08] MEDS: IPRATROPIUM BROM 0.5 MG/2.5ML INH SOL NEB PRN (22:29)
[2021-02-08] MEDS: ALBUTEROL SULF 2.5 MG/0.5ML(0.5%) NEB SOLN NEB PRN (22:29)
[2021-02-09 05:00] VITALS: BP 151/79
[2021-02-09] MEDS: InsuLIN REG 1unit/0.01ml Soln (100units/ml) SC SCH ×3 (06:22→16:36)
[2021-02-09] MEDS: ACCU-CHEK COMFORT CURVE STRIP VI SCH ×3 (06:22→16:36)
[2021-02-09 06:58] LABS: Potassium 3.6 mmol/L (3.5-5.1)
[2021-02-09 07:05] LABS: Albumin 2.2 g/dL (3.4-5.0); BUN/Creatinine Ratio 40.8; Bilirubin, Total 0.6 mg/dL (0.2-1.0); Calcium 8.3 mg/dL (8.5-10.1); Total Protein 5.2 g/dL (6.4-8.2)
[2021-02-09] MEDS: BUDESONIDE (INHALATION) 0.5 MG/2 ML NEB NEB SCH (07:11)
[2021-02-09 09:00] VITALS: BP 154/76
[2021-02-09] MEDS ORDERED: levoFLOXacin 500MG 100 ML IV SCH (10:00)
[2021-02-09] MEDS: Glucerna Carbsteady SHAKE Vanilla 8oz PO SCH ×2 (10:34→12:00)
[2021-02-09] MEDS: VERAPAMIL HCL 120 mg ER tab PO SCH (10:35)
[2021-02-09] MEDS: cloNIDine HCL 0.1 MG TAB PO SCH (10:35)
[2021-02-09] MEDS: LOSARTAN POTASSIUM 50 MG TAB PO SCH (10:36)
[2021-02-09] MEDS: CITALOPRAM HYDROBR 20 MG TAB PO SCH (10:36)
[2021-02-09] MEDS: PANTOPRAZOLE 40 MG TAB PO SCH (10:36)
[2021-02-09 13:00] VITALS: BP 157/71
[2021-02-09 17:00] VITALS: BP 145/66
== END 2021-02-09 15:50 | DRG 563 ==
LOC: ER 12:57 → EDBD 12:57 → EDUNIT# 12:57 → OVERFLOW 19:31 → TELE-EAST 02-05 12:45
PROVIDERS: ADMIT Family Medicine; ATTEND Family Medicine
DX: S42.92XA Fracture of left shoulder girdle, part unspecified, initial encounter for closed fracture (principal); N39.0 Urinary tract infection, site not specified; S00.03XA Contusion of scalp, initial encounter; E87.6 Hypokalemia; E11.65 Type 2 diabetes mellitus with hyperglycemia; Z66 Do not resuscitate; I10 Essential (primary) hypertension; J44.9 Chronic obstructive pulmonary disease, unspecified; W18.39XA Other fall on same level, initial encounter; C44.90 Unspecified malignant neoplasm of skin, unspecified; F41.9 Anxiety disorder, unspecified; E78.5 Hyperlipidemia, unspecified; Z20.822 Contact with and (suspected) exposure to COVID-19; B96.20 Unspecified Escherichia coli [E. coli] as the cause of diseases classified elsewhere; Y93.89 Activity, other specified; Z90.49 Acquired absence of other specified parts of digestive tract; Z90.710 Acquired absence of both cervix and uterus; Y92.89 Other specified places as the place of occurrence of the external cause; Y99.8 Other external cause status
CPT/HCPCS: 36415; 70450; 71045; 73030; 73200; 80048; 80053; 81001; 82962; 83036; 83735; 83880; 84443; 85025; 85610; 85730; 87081; 87086; 87088; 87186; 87426; 93306; 94640; 96361; 96374; 96375; 97110; 97116; 97530; G0378; J0696; J1815; J1956; J2405; J3480